=== PATIENT | female | born 1945 | race Caucasian/White ===

== ENCOUNTER 2020-04-04 09:42 | Outpatient (REF) | payer OTHER, SELFPAY ==
--- NOTE | ~2020-04-04 | MM_ITS ---
EXAMINATION: MM SCREENING DIGITAL BREAST TOMOSYNTHESIS, BILATERAL CLINICAL INFORMATION: Screening. Asymptomatic. The lifetime risk of breast cancer based on the Tyrer-Cuzick Model is 3%. COMPARISON: Mammography: 06/24/2018, 08/15/2015 TECHNIQUE: Digital breast tomosynthesis is performed in both the craniocaudal and mediolateral oblique views along with computer-aided detection (CAD). Synthesized 2D images are generated from the tomosynthesis. FINDINGS: There are scattered areas of fibroglandular density (ACR BI-RADS breast composition Category b). There are no significant masses, abnormal calcifications, or other abnormalities. No significant changes from prior studies. The axilla and skin contours are unremarkable. MM/MM tomosynthesis screening BI IMPRESSION: No mammographic evidence of malignancy. ASSESSMENT: BI-RADS 1: Negative RECOMMENDATION: Routine annual mammography screening. This patient's information was entered into a reminder system with a target due date for their next mammogram.
== END 2020-04-04 09:43 | disposition home or self-care (01) ==
LOC: HO.MAMMO 09:42
PROVIDERS: PCP Nurse Practitioner Family; Visit Provider Nurse Practitioner Family
DX: Z12.31 Encounter for screening mammogram for malignant neoplasm of breast (principal)
CPT/HCPCS: 77063; 77067

== ENCOUNTER 2021-05-01 08:25 | Outpatient (REF) | payer OTHER, SELFPAY ==
--- NOTE | ~2021-05-01 | MM_ITS ---
EXAMINATION: BONE DENSITOMETRY CLINICAL INDICATION: Osteopenia. COMPARISON: Previous BD dated 06/23/2018 and baseline BD dated 01/29/2005. TECHNIQUE: Using a [employer] DXA System (software version: 13.1) manufactured by [employer], dual-energy x-ray absorptiometry was performed of the lumbar spine and left hip. The images are of good technical quality. Summary results are attached. FINDINGS: AP SPINE L1-L4: There is dextrocurvature lumbar spine with multilevel degenerative changes which may cause overestimation of the lumbar bone mineral density. Current: BMD 1.282 g/cm2, Z-score 2.7, T-score 0.9, normal, 7.0% increase from previous, 20.5% increase from baseline (<5% change is not significant). Prior: BMD 1.198 g/cm2. Baseline: BMD 1.064 g/cm2. LEFT FEMUR, NECK: Current: BMD 0.721 g/cm2, Z-score -0.3, T-score -2.3, osteopenia. Prior: BMD 0.760 g/cm2. Baseline: BMD 0.668 g/cm2. LEFT FEMUR, TOTAL: Current: BMD 0.739 g/cm2, Z-score -0.3, T-score -2.1, osteopenia, 8.1% decrease from previous, 6.2% decrease from baseline (<5% change is not significant). Prior: BMD 0.804 g/cm2. Baseline: BMD 0.788 g/cm2. IDENTIFIED RISK FACTORS: Early menopause, hysterectomy, bilateral oophorectomy, osteoporosis, secondary osteoporosis. HISTORY OF FRACTURE: None listed. MEDICATIONS: Calcium, vitamin D. MM/XR DEXA axial skeleton IMPRESSION: 1. DIAGNOSIS: Osteopenia based on the lowest T-score value of -2.3 in the femoral neck applying World Health Organization criteria. 2. 10-YEAR FRACTURE RISK PREDICTION, FRAX: Major osteoporotic fracture (clinical spine, forearm, hip or shoulder) 15.1%. Hip fracture 4.3%. 3. Treatment Recommendations: NOF guidelines recommend consideration for treatment in postmenopausal women and men age 50 and older presenting with the following: -A hip or vertebral (clinical or morphometric) fracture. -T-score less than or equal to -2.5 at the femoral neck or spine after appropriate evaluation to exclude secondary causes. -Low bone mass at the hip or spine and a 10-year fracture probability by FRAX of greater than or equal to 3% for hip fracture or greater than or equal to 20% for major osteoporotic fracture based on the [place] adapted WHO algorithm. 4. Other Recommendations: All treatment decisions require clinical judgment and consideration of individual patient factors, including patient preferences, comorbidities, previous drug use, risk factors not captured in the FRAX model (e.g. frailty, falls, vitamin D deficiency, increased bone turnover, interval significant decline in bone density) and possible under or overestimation of fracture risk by FRAX. Additional medical evaluation for secondary cause of low bone mineral density may be appropriate. FUTURE SCAN RECOMMENDATION: People with diagnosed cases of osteoporosis or at high risk for fracture should have regular bone mineral density tests. For patients eligible for Medicare, routine testing is allowed once every 2 years. The testing frequency can be increased to one year for patients who have rapidly progressing disease, those who are receiving or discontinuing medical therapy to restore bone mass, or have additional risk factors.
--- NOTE | ~2021-05-01 | MM_ITS ---
EXAMINATION: MM SCREENING DIGITAL BREAST TOMOSYNTHESIS, BILATERAL CLINICAL INFORMATION: Screening. Asymptomatic. The lifetime risk of breast cancer based on the Tyrer-Cuzick Model is 2%. COMPARISON: Mammography: 04/04/2020, 06/23/2018, 08/15/2015 TECHNIQUE: Digital breast tomosynthesis is performed in both the craniocaudal and mediolateral oblique views along with computer-aided detection (CAD). Synthesized 2D images are generated from the tomosynthesis. FINDINGS: There are scattered areas of fibroglandular density (ACR BI-RADS breast composition Category b). There are no significant masses, abnormal calcifications, or other abnormalities. Parenchymal pattern is similar to prior studies. There is no developing density or architectural abnormality. The axilla and skin contours are unremarkable. No significant changes. MM/MM tomosynthesis screening BI IMPRESSION: No mammographic evidence of malignancy. ASSESSMENT: BI-RADS 1: Negative RECOMMENDATION: Routine annual mammography screening. This patient's information was entered into a reminder system with a target due date for their next mammogram.
== END 2021-05-01 08:26 | disposition home or self-care (01) ==
LOC: HO.MAMMO 08:25
PROVIDERS: Visit Provider Nurse Practitioner Family
DX: Z12.31 Encounter for screening mammogram for malignant neoplasm of breast (principal); M85.89 Other specified disorders of bone density and structure, multiple sites; Z78.0 Asymptomatic menopausal state; Z90.710 Acquired absence of both cervix and uterus; Z90.722 Acquired absence of ovaries, bilateral; Z79.899 Other long term (current) drug therapy
CPT/HCPCS: 77063; 77067; 77080

== ENCOUNTER 2022-11-03 08:00 | Outpatient (AMB) | payer OTHER, SELFPAY ==
--- NOTE | 2022-11-03 08:07 | MHC.OFFVIS ---
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 Cooley. 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 Cooley. Denies recent falls. She continues to go to her exercise class 2 times per week. She denies any fevers or chills. She reports mild intermittent discomfort in both of her knees. She does not take any medicines for her discomfort. Allergies shellfish Allergy (Mild, Uncoded 11/03/22 08:15) Unknown Medication List - Last Reconciled 11/03/22 by Josh Cooley MD multivitamin (Multiple Vitamins tablet) 1 tab PO DAILY PFSH Social History (Updated 11/03/22 @ 08:15 by Carmen Templeton [facility]) Current occupational status: retired and disabled Physical Exam Vital Signs: BMI result Body Mass Index 24.4 Const Other: Well-nourished well-developed very friendly female awake alert and oriented x3 in no acute distress Extrem Other: Bilateral lower extremity examination shows good capillary refill, no skin lesions noted, normal sensation light touch Bilateral knee examination shows that the surgical incisions are well healed, no erythema, full active extension and flexion to 120 degrees, her patellae track well Results Reviewed Results Reviewed: X-rays of the patient's left knee taken today show a total knee arthroplasty in good position with no signs of loosening, no acute bony abnormalities Assessment & Plan Assessment & Plan (1) Left knee pain: Code(s): M25.562 - Pain in left knee Plan: Ms. Bland continues to do well after undergoing bilateral total knee replacement surgeries. She will continue with her exercise program. She does know to take antibiotics before any dental work. She will contact me prior to her annual follow-up appointment next spring should any questions or concerns arise. Feel free to call me at any time should questions regarding her orthopedic management arise. I spent 22 minutes in reviewing the patient's records and imaging studies, seeing the patient and documenting in the medical record. Orders: Orders XR knee LT 3V Today M25.562 - Pain in left knee Coding Level of Care Code Est Pt Level 2 (27027) Diagnoses Left knee pain M25.562
[2022-11-03 08:14] VITALS: BMI 24.4
== END 2022-11-03 08:32 | disposition home or self-care (01) ==
PROVIDERS: PCP Nurse Practitioner Family; Visit Provider Orthopaedic Surgery
DX: M25.562 Pain in left knee (principal)
CPT/HCPCS: 99212

== ENCOUNTER 2022-11-03 08:18 | Outpatient (REF) | payer OTHER, SELFPAY ==
--- NOTE | ~2022-11-03 | XR_ITS ---
EXAMINATION: XR KNEE, LEFT CLINICAL INFORMATION: Pain in left knee. COMPARISON: None available. TECHNIQUE: Three views of the left knee. FINDINGS: Prosthetic components of the total knee arthroplasty are appropriately aligned without periprosthetic fracture or abnormal lucency. No component migration. A small joint effusion is suspected. Surrounding soft tissues are markedly swollen and edematous. Bones are osteopenic. XR/XR knee LT 3V IMPRESSION: Appropriate alignment of the left total knee arthroplasty. No evidence of loosening or periprosthetic fracture. Small left knee joint effusion. Marked surrounding soft tissue swelling at the knee.
== END 2022-11-03 08:19 | disposition home or self-care (01) ==
LOC: HO.HOSX 08:18
PROVIDERS: Visit Provider Orthopaedic Surgery
DX: M25.562 Pain in left knee (principal)
CPT/HCPCS: 73562

== ENCOUNTER 2023-06-02 08:18 | Outpatient (AMB) | payer OTHER, SELFPAY ==
[2023-06-02 08:35] VITALS: BMI 24.4
--- NOTE | 2023-06-02 08:35 | A.OFFVIS_ITS ---
Intake Vital Signs 06/02/23 08:35 Height 5 ft Weight 125 lb BMI 24.4 Intake Visit Reasons: OV-Lt TKA 03/24/2022-follow up Intake Note: Zoe is a 77 year old female who presents for a follow up after her Left TKA on 03/24/2022. Patient reports she is doing well and has not concerns. She continues with her home exercise program. She denies any fevers or chills. She does not take any medicine for her intermittent discomfort. Allergies shellfish Allergy (Mild, Uncoded 11/03/22 08:15) Unknown Medication List - Last Reconciled 06/02/23 by Josh Cooley MD brimonidine 0.2% drps ophthalmic (eye) multivitamin (Multiple Vitamins tablet) 1 tab PO DAILY [facility] Surgical History (Updated 06/02/23 @ 08:50 by Bella Copeland [facility]) History of right knee surgery (~2017) History of left knee surgery (~03/24/22) Social History (Updated 11/03/22 @ 08:15 by Carmen Templeton [facility]) Current occupational status: retired and disabled Physical Exam Vital Signs: BMI result Body Mass Index 24.4 Const Other: Well-nourished well-developed very friendly female awake alert and oriented x3 in no acute distress Extrem Other: Bilateral lower extremity examination shows good capillary refill, no skin lesions noted, normal sensation light touch Left knee examination shows that the surgical incision is well healed, no erythema, full active extension and flexion to 125 degrees, her patella tracks well Results Reviewed Results Reviewed: X-rays of the patient's left knee taken today show a total knee arthroplasty in good position with no signs of loosening, no acute bony abnormalities Assessment & Plan Assessment & Plan (1) Left knee pain: Code(s): M25.562 - Pain in left knee Plan Ms. Bland continues to do well after undergoing left total knee replacement surgery on 03/24/2022. She will continue with her home exercise program. She does know to take antibiotics before any dental work. She will contact me prior to her annual follow-up appointment should any questions or concerns arise. Feel free to call me at any time should questions regarding her orthopedic management arise. I spent 22 minutes in reviewing the patient's records and imaging studies, seeing the patient and documenting in the medical record. Orders: Orders XR knee LT 3V Today M25.562 - Pain in left knee Coding Level of Care Code Est Pt Level 2 (59730) Diagnoses Left knee pain M25.562
== END 2023-06-02 08:59 | disposition home or self-care (01) ==
PROVIDERS: PCP Internal Medicine; Visit Provider Orthopaedic Surgery
DX: M25.562 Pain in left knee (principal)
CPT/HCPCS: 99213

== ENCOUNTER 2023-06-02 09:01 | Outpatient (REF) | payer OTHER, SELFPAY ==
--- NOTE | ~2023-06-02 | XR_ITS ---
EXAMINATION: XR KNEE, LEFT CLINICAL INFORMATION: Pain in left knee. COMPARISON: 11/03/2022 TECHNIQUE: Three views of the left knee. FINDINGS: Status post left total knee arthroplasty. Hardware appears intact. Moderate joint effusion. Bones are diffusely demineralized. XR/XR knee LT 3V IMPRESSION: Status post left total knee arthroplasty. Hardware appears intact. Moderate joint effusion.
== END 2023-06-02 09:02 | disposition home or self-care (01) ==
LOC: HO.HOSX 09:01
PROVIDERS: Visit Provider Orthopaedic Surgery
DX: M25.562 Pain in left knee (principal)
CPT/HCPCS: 73562

== ENCOUNTER 2024-01-07 07:24 | Outpatient (REF) | payer OTHER, SELFPAY ==
--- NOTE | ~2024-01-07 | MM_ITS ---
EXAMINATION: MM SCREENING DIGITAL BREAST TOMOSYNTHESIS, BILATERAL CLINICAL INFORMATION: Screening. Asymptomatic. COMPARISON: Mammography: Comparison is made with available priors TECHNIQUE: Digital breast mammography with tomosynthesis is performed in both the craniocaudal and mediolateral oblique views along with computer-aided detection (CAD). FINDINGS: There are scattered areas of fibroglandular density (ACR BI-RADS breast composition Category b). There are no significant masses, abnormal calcifications, or other abnormalities. MM/MM tomosynthesis screening BI IMPRESSION: No mammographic evidence of malignancy. ASSESSMENT: BI-RADS BI-RADS 1 - Negative RECOMMENDATION: Routine annual mammography screening. 1 year F/U This examination should not preclude the clinical evaluation of a suspicious palpable abnormality. This patient's information was entered into a reminder system with a target due date for their next mammogram. Electronically signed by: Yesica Arrieta DO 01/14/2024 01:03 PM DONNA
== END 2024-01-07 07:25 | disposition home or self-care (01) ==
LOC: HO.MAMMO 07:24
PROVIDERS: PCP Internal Medicine; Visit Provider Internal Medicine
DX: Z12.31 Encounter for screening mammogram for malignant neoplasm of breast (principal)
CPT/HCPCS: 77063; 77067

== ENCOUNTER → 2024-01-07 07:45 | Outpatient (BNV) | payer OTHER, SELFPAY | PROVIDERS: PCP Internal Medicine; Visit Provider Internal Medicine | DX: Z12.31 Encounter for screening mammogram for malignant neoplasm of breast (principal) | CPT/HCPCS: 77063; 77067 ==

== ENCOUNTER 2024-03-22 10:19 | Outpatient (AMB) | payer OTHER, SELFPAY ==
--- NOTE | 2024-03-22 10:28 | MHC.PC.OV ---
Vital Signs 03/22/24 10:29 Height 5 ft Weight 129 lb BMI 25.2 BP 130/70 Blood Pressure Location Lt brachial Position Sitting Respiration 16 Pulse 68 Pulse Source Pulse Oximeter Temp 98.0 F Temp Source Oral Pulse Oximetry (%) 97 Oxygen Delivery Method Room Air Intake Visit Reasons: REHABILITATION SERVICES COUNSELOR office visit Intake Note: Pt is here today for New patient visit. Allergies shellfish Allergy (Mild, Uncoded 03/22/24 10:34) Unknown Medication List - Last Reconciled 03/22/24 by Kaur Conner MD brimonidine 0.2% drps ophthalmic (eye) multivitamin (Multiple Vitamins tablet) 1 tab PO DAILY Tobacco use date assessed: 03/22/24 Fall risk assessment: No Falls in past year Last assessed Fall Risk: 03/22/24 Dental Screening Dental Screen Date: 03/22/24 Did you have a dental visit in the last 12 months?: Yes Did you have a dental problem in the last 6 months where you did not have access to dental care?: No Was dental information given to patient?: Patient has dentist HPI REHABILITATION SERVICES COUNSELOR office visit HPI Details Pt presents for REHABILITATION SERVICES COUNSELOR PE. Pt used to see REHABILITATION SERVICES COUNSELOR at [facility], last visit in 2021. Patient denies any significant past medical history. [facility] Surgical History (Updated 03/22/24 @ 10:58 by Kaur Conner MD) History of right knee surgery (~2017) History of left knee surgery (~03/24/22) Family History (Updated 03/22/24 @ 10:37 by Latonya Wright [facility]) Father Heavy smoker Mother Diabetes Social History (Updated 03/22/24 @ 10:59 by Kaur Conner MD) Household Members Other:: lives with daughter, exercise 2 x week Housing: House Patient Tobacco Use Status: Former Tobacco user e-Cigarette/Vaping Use: Never Used service: No Current occupational status: retired Cognitive needs: No Hearing needs: No Vision needs: Yes Questionnaire PHQ-9 Over the last 2 weeks, how often have you been bothered by any of the following problems? 1. Little interest or pleasure in doing things: not at all 2. Feeling down, depressed, or hopeless: not at all 3. Trouble falling or staying asleep, or sleeping too much: not at all 4. Feeling tired or having little energy: not at all 5. Poor appetite or overeating: not at all 6. Feeling bad about yourself - or that you are a failure or have let yourself or your family down: not at all 7. Trouble concentrating on things, such as reading the newspaper or watching television: not at all 8. Moving or speaking so slowly that other people could have noticed. Or the opposite - being so fidgety or restless that you have been moving around a lot more than usual: not at all 9. Thoughts that you would be better off or of hurting yourself in some way: not at all Total score: 0 Depression Screening Interpretation: Negative Depression Screening Done: Yes 42434 - PHQ-9 Billing: Yes Source: Developed by Drs. Marty Morton, Tiffany Husain, Paras Herbert and colleagues, with an educational tobias from [employer]. Thrive Questionnaire Date Thrive assessed: 03/22/24 I am a: Patient What is your living situation today?: I have a steady place to live Within the past 12 months, did the food you bought not last and you didn't have the money to get more?: Never true Within the past 12 months, did you worry whether your food would run out before you got money to buy more?: Never true Do you have trouble paying for medicines?: No Do you have trouble getting transportation to medical appointments?: No Do you have trouble paying your heating and electricity bill?: No Do you have trouble taking care of your child, family member or friend?: No Do you have trouble with day-to-day activities such as bathing, preparing meals, shopping, managing finances, etc.?: No Are you currently unemployed and looking for a job?: No Are you interested in more education?: No Please select the resources that you would like help with: None Currently or been in a relationship where the following occur: No concerns reported THRIVE Score: 0 AUDIT C Alcohol Use Questionnaire (AUDIT-C) 1. How often do you have a drink containing alcohol?: 2-3 times a week 2. How many drinks containing alcohol do you have on a typical day when you are drinking?: 1 or 2 3. How often do you have six or more drinks on one occasion?: Never Total Score: 3 CARLY-7 AMB Questionnaire CARLY-7 Date CARLY - 7 assessed: 03/22/24 Feeling nervous, anxious, or on edge: 0 = Not at all Not being able to stop or control worryin = Not at all Worrying too much about different things: 0 = Not at all Trouble relaxin = Not at all Being so restless that it is hard to sit still: 0 = Not at all Becoming easily annoyed or irritable: 0 = Not at all Feeling afraid as if something awful might happen: 0 = Not at all Total CARLY-7 score (0-4 normal; 5-9 mild; 10-14 moderate; 15-21 severe): 0 Source: Developed by Drs. Marty Morton, Tiffany Husain, Paras Herbert and colleagues, with an educational tobias from [employer]. CARLY-7 Assessment Billing CARLY-7 Assessment Tool: CARLY-7 Assessment 31676 Review of Systems Const All systems reviewed & are unremarkable except as noted in HPI and below Reports no additional complaints Eyes Reports no additional complaints ENT Reports no additional complaints Card Reports no additional complaints Resp Reports no additional complaints GI Reports no additional complaints Reports no additional complaints Musc Reports no additional complaints Physical exam (Primary Care) Vital Signs: Last Vital Signs Temp 98.0 F 03/22/24 10:29 Pulse 68 03/22/24 10:29 Resp 16 03/22/24 10:29 BP 130/70 03/22/24 10:29 Pulse Ox 97 03/22/24 10:29 Oxygen Delivery Method Room Air 03/22/24 10:29 BMI result Body Mass Index 25.2 Tobacco/Smoking Status: Tobacco use Status Tobacco use date assessed 03/22/24 03/22/24 10:38 Patient Tobacco Use Status Former Tobacco user 03/22/24 10:59 e-Cigarette/Vaping Use Never Used 03/22/24 10:59 PHQ-9: PHQ-9 Score PHQ-9: Total score 0 03/22/24 11:00 Depression Screening Interpretation: Negative Thrive Assessment: Date of Thrive Assessment Date Thrive assessed 03/22/24 03/22/24 10:38 Currently or been in a relationship where the following occur: No concerns reported Const General: no acute distress HENMT Head: Yes normal to inspection General nose exam: Normal external nose present Face and sinus: Yes normal facial exam Mouth: Normal oral and palatal mucosa present Throat: Yes posterior oropharynx normal Eyes General: appearance normal, both eyes and all related structures Neck Neck: Yes no lymphadenopathy and Yes supple Resp Effort & Inspection: normal respiratory effort Auscultation: clear to auscultation bilaterally Cardio Rhythm: regular rhythm Heart sounds: S1 normal heart sound present and S2 normal heart sound present GI Inspection: Yes normal to inspection Palpation (GI): Soft to palpation Percussion: Yes normal to percussion Auscultation: normal bowel sounds Coding Level of Care Code New Pt Prev Care >65yr (67686) Diagnoses Hx of screening mammography Z92.89 Hx of colonoscopy Z98.890 Vitamin D deficiency E55.9 Hyperlipidemia E78.5 Annual physical exam Z00.00 Additional Codes CARLY-7 Assessment Billing - CARLY-7 Assessment Tool: CARLY-7 Assessment 60075 ([id number]) PHQ-9 - 68457 - PHQ-9 Billing: Yes ([id number]) Assessment & Plan Assessment & Plan (1) Hx of screening mammography: Comment: 2023 [facility] Code(s): Z92.89 - Personal history of other medical treatment Category: Medical Plan: up to date (2) Hx of colonoscopy: Comment: 2021 normal Code(s): Z98.890 - Other specified postprocedural states Category: Medical Plan: negative (3) Vitamin D deficiency: Code(s): E55.9 - Vitamin D deficiency, unspecified Category: Medical Plan: Check vitamin-D level patient was advised to start taking 1000 units of vitamin D3 (4) Hyperlipidemia: Code(s): E78.5 - Hyperlipidemia, unspecified Category: Medical Plan: Low-cholesterol diet discussed with the patient, she will have a fasting blood work including lipid profile (5) Annual physical exam: Code(s): Z00.00 - Encounter for general adult medical examination without abnormal findings Category: Medical Plan: Well-balanced diet regular physical activity discussed with the patient. She is up-to-date with the mammogram colonoscopy and had normal DEXA 2 years Orders: Orders Comprehensive [place]. Panel Fast Today E55.9 - Vitamin D deficiency, unspecified, E78.5 - Hyperlipidemia, unspecified Lipid Panel Today E55.9 - Vitamin D deficiency, unspecified, E78.5 - Hyperlipidemia, unspecified TSH reflex Free T4 Today E55.9 - Vitamin D deficiency, unspecified, E78.5 - Hyperlipidemia, unspecified Vitamin D 25-OH Total Today E55.9 - Vitamin D deficiency, unspecified, E78.5 - Hyperlipidemia, unspecified Complete Blood Count Auto Diff Today E55.9 - Vitamin D deficiency, unspecified, E78.5 - Hyperlipidemia, unspecified
[2024-03-22 10:29] VITALS: BP 130/70; PULSE 68; RESP 16; TEMP 36.7; O2SAT 97; BMI 25.2
--- OUTSIDE RECORDS SUMMARY | 2024-03-22 12:19 | XMS_ITS ---
Author Organization [facility] Address [address] [place] [address] Care Team Providers Care Diesel Service Journeyman Name Role Phone Kaur Conner MD Primary Care Provider Portillo Nuno Unavailable [phone] Allergies Allergen (clinical drug ingredient) Drug/Non Drug Allergy documented on EMR Reaction Allergy Type Onset Date Status Shrimp Flavor Unknown Drug Allergy Act mine REASON FOR VISIT Painful nail(s) aggravated by shoes causing difficulty standing/walking Medications Medication SIG (Take, Route, Frequency, Duration) Notes Start Date End Date Status Brimonidine Tartrate 0.2 % INSTILL 1 REJI P IN LEFT EYE TWICE DAILY. 12 HOURS APART Ophthalmic for 90 Days Active Social History Tobacco Use: Social History Observation Description Date Details (start date - stop date) Former Smoker NA - NA Tobacco Use/Smoking Question Answer Notes Are you a: former smoker Additional Findings: Tobacco Non-User Current no n-smoker Alcohol Screen Question Answer Notes Did you have a drink containing alcohol in the p ast year? Yes Points 0 Interpretation Negative Tobacco use other than smoking: Question Answer Notes Are you an other tobacco user? No Problems Problem Type SNOMED Code ICD Code Onset Dates Problem Status W/U Status Risk Notes Problem [id number] Onychomycosis (B35.1) Active confirmed Procedures Procedure Date Ordered Date Performed Result Body Sit e 06119-PRINTDO NAIL, 6 OR MORE 01/11/2024 N/A Encounters Encounter Location Date Provider Diagnosis [facility] [address] [place] [address] 01/11/2024 Portillo Mccormick Onychomycosis B35.1 ; Pain in right toe(s) M79.674 and Pain in left toe(s) M79.675 Assessments Encounter Date Diagnosis (ICD Code) Assessment Notes Treatment Notes Treatment Clinical Notes Section Notes 01/11/2024 Onychomycosis (ICD-10 - B35.1) 01/11/2024 Pain in right toe(s) (ICD-10 - M79.674) 01/11/2024 Pain in left toe(s) (ICD-10 - M79.675) Plan Of Treatment Pending Test Test Name Order Date [id number] NAIL, 6 OR MORE 01/11/2024 Next Appt Details Follow Up: prn, Reason: Provider Name:Portillo Mccormick , 04/14/2024 09:00:00 AM, [address] [place] [address], [phone], Procedure Notes * Category Sub-Category Detail Notes Debride Nail 6-10 Nail debridement Performance o f this nail treatment by a nonprofessional would put this patients foot and overall health at risk. Therefore, debridement to affected nail(s), as described in exam, was performed extensively to reduce/remove overall nail length, girth, thickness, subungual debris, and necrotic tissue, by manual and/or electrical means through the use of a nail nipper and/or dremel-type finish grinder, to a more viable healthy nail plate or bed tissue 6-10. Silver nitrate used for any petechial bleeding as necessary. Definitive antifungal treatment options have been reviewed and discussed with the patient. The patient chooses, no pharmaceutical tx - 8[address]72 Progress Notes * Adina MARMOLEJOaDOB:[birth year] (78 yo F)Acc No.[id number]:01/11/2024 Progress Note Patient:?Zoe MARMOLEJO Provider:?Portillo Mccormick DPM :1945???Age:78 Y???Sex:Female D ate:01/11/2024 Address:[address] [place], [place] [address] Pcp:Kaur Conner MD Subjective: * Chief Complaints: * ???Painful nail(s) aggravate d by shoes causing difficulty standing/walking * HPI: ???Painful Nails:?Pt States Last PCP Visit:?Date:?07/21/2023 * ROS:?General/Constitutional:?Nausea?denies.?Vomiting?denies.?Hunger Thirst?denies.?Loss appetite?denies.?Chills?denies.?Fatigue?denies.?Fever?denies.?Night Sweats?denies.?Unexplained weight loss?denies.?Unexplained weight gain?denies.?HEENTM:?Dentures?admits.?Dizziness?denies.?Glasses/contacts?admits.?Retinopathy?de nies.?Blurred/double vision?denies.?TMJ?denies.?Discharge/drainage?denies.?Implants?denies.?Sore throat?denies.?Dental implants?denies.?Hard of hearing ?denies.?Difficulty chewing/swallowing/speaking?denies.?Nose bleeds?denies.?Sore mouth?denies.?Respiratory:?On Oxygen?denies.?Pneumonia/pleurisy?denies.?Bronchitis?denies.?Emphysema?denies.?C oughing?denies.?Cough blood?denies.?Shortness of breath?denies.?Wheezing?denies.?Cardiovascular:?Pacemaker?denies.?MVP?denies.?WPW?denies.?CHF?denies.?Heart attack?denies.?Septal defect?denies.?Rapid beat?denies.?Chest pain ?denies.?Atrial Fib.?denies.?Murmur/Palpitations?denies.?Gastrointestinal:?Hemorrhoids?denies.?Stomach/Abdominal pain?denies.?Dark blood stool?denies.?Irritable bowel ?admits.?Constipation?denies.?Diarrhea?denies.?Hematology:?Swelling?denies.?Clots?denies.?Varicose Veins?denies.?Bruising?denies.?Bleeding problem?denies.?Genitourinary:?Blood urine?denies.?Frequent/Painfu/urination/bladder control?denies.?Kidney stones?denies.?Infection (UTI)?denies.?Nephropathy?denies.?sex trans dis (STD)?denies.?Prostate?denies.?Musculoskeletal:?Hammertoes?denies.?Bunions?denies.?Back Pain?denies.?Muscle Cramps/ Resting?denies.?Muscle cramps / walking?denies.?Generalized aches and pains?denies.?Weakness?denies.?Integ.:?Velasquez?denies.?Scars?denies.?Corns/calluses?admits.?Ingrown nails?admits.?Painful nails?admits.?Open Sores?denies.?Rashes?denies.?Neurologic:?Difficulty sleeping?denies.?Brain disorder?denies.?Numbness?denies.?Balance trouble?denies.?Confusion?denies.?Fainting/blackouts?denies.?Tingling?denies.?Tr emors?denies.? * Medical History:? * Surgical History:?left knee replacement 03/23/2022right knee replacement 04/23/2017Gall bladder removal * Hospitalization/Major Diagno stic Procedure:?Denies Past Hospitalization * Family History:?Mother: dece ased, diagnosed with Diabetic - NIDDM.?Father: .? * Social History:?Tobacco Use:?Tobacco Use/Smoking?Are you a:?former smoker ?Additional Findings: Tobacco Non-User?Current non-smoker ?Tobacco use other than smoking?Are you an other tobacco user??No ???Drugs/Alcohol:?Drugs?Have you used drugs other than those for medical reasons in the past 12 months??No ?Alcohol Screen?Did you have a drink containing alcohol in the past year??Yes ?Points?0 ?Interpretation?Negative ???Miscellaneous:?Caffeine: yes. ?Children: yes, 2. ?Exercise: no. ?Marital status: . ?Occupation: Retired. * Medications:?TakingBrimonidi ne Tartrate 0.2 % Solution INSTILL 1 DROP IN LEFT EYE TWICE DAILY. 12 HOURS APART Ophthalmic Medication List reviewed and reconciled with the patientTaking Brimonidine Tartrate 0.2 % Solution INSTILL 1 DROP IN LEFT EYE TWICE DAILY. 12 HOURS APART Ophthalmic Medication List reviewed and reconciled with the patient * Allergies:?Shrimp Flavoryes[ Allergies Verified] Objective: * Vitals:? * Examination: ???Nails: ?NAILS are:?Elongated, overgrown, dystrophic, lytic, greater than 3mm thick, discolored and friable with crumbly malodorous subungual debris, with pain on palpation, 1-5 B/L.? Assessment: * Assessment: 1.?Pain in right toe(s) - M7 9.674???2.?Onychomycosis - B35.1 (Primary)???3.?Pain in left toe(s) - M79.675??? Plan: * Treatment: * Procedures:?Debride Nail 6-10:?Nail debridement?Performance of this nail treatment by a nonprofessional would put this patients foot and overall health at risk. Therefore, debridement to affected nail(s), as described in exam, was performed extensively to reduce/remove overall nail length, girth, thickness, subungual debris, and necrotic tissue, by manual and/or electrical means through the use of a nail nipper and/or dremel-type finish grinder, to a more viable healthy nail plate or bed tissue 6-10. Silver nitrate used for any petechial bleeding as necessary. Definitive antifungal treatment options have been reviewed and discussed with the patient. The patient chooses, no pharmaceutical tx - 75107.? * Procedure Codes:?92746 DEBRI DE NAIL, 6 OR MORE * Follow Up:?prn * Images: * Sign off status: Completed true * Provider:?Portillo Mccormick DPM Date:?2023 Generated for Georges hazel/Aidan/Eladioitting on:?03/22/2024 12:19 PM EST History and Physical Notes * HPI (History of Present Illness) Category Sub-Category Detail Notes Category Not es Painful Nails Pt States Last PCP Visit: Date:: 07/21/2023 Examination Category Sub-Category Detail Notes Category Not es Nails NAILS are: Elongated, overg rown, dystrophic, lytic, greater than 3mm thick, discolored and friable with crumbly malodorous subungual debris, with pain on palpation, 1-5 B/L
--- OUTSIDE RECORDS SUMMARY | 2024-03-22 12:19 | XMS_ITS | Data Portability ---
Author Organization [place] [facility] Address [address] [facility] [address] [place] [address] Care Team Providers Care Unclaimed Property Manager Name Role Phone TREVOR ARAGON Primary Care Provider Assessment Encounter Date Assessment Date Assessment LastModified by Organization Details LastModified Time 05/12/2022 05/12/2022 Pleasant 76-year-old female status post left total knee arthroplasty on 03/23/2022. However her range of motion is still notably decreased. I will have her see Dr. Cooley for possible manipulation under anesthesia of her left total knee replacement. In the meantime she should continue with her stretching exercise regimen as aggressively as possible within safe limits. [email or web address] Not available 05/12/2022 13:27:34 Plan of Treatment Reminders Order Date Submit Date Provider Last Modified By Organization Details Last Modified Time Details Appointments None record ed. Lab None record ed. Referral None record ed. Procedures None record ed. Surgeries None record ed. Imaging None record ed. Medication Orders None record ed. Patient TargetsNo targets recorded. Patient InstructionsNo instructions recorded. Reason for Referral None Reported. Problems Name Problem SNOMED Code Status Onset Date Resolution Date Notes Provider Name and Address Organization Details Recorded Time Osteoarthri tis of right knee joint 5256722367455 00 Active 2022 Josh Cooley MD [address] [facility] [address], [place], [address] [facility], 13:36:18 Problem Notes None recorded. Procedures Surgical History Date Name Laterality Status Provider Name and Address Organization Details Recorded Time Hysterectomy completed Estella Perez [facility] 05/12/2022 09:32:54 cholecystectomy completed Estella Perez [facility] 05/12/2022 09:33:34 Imaging Results None recorded. Procedure Notes None recorded. Medical Equipment None Reported. Allergies No known drug allergies Medications Name Sig Start Date Stop Date Status Note LastModified by Organization Details LastModified Time celecoxib 200 mg capsule active Not Available Not Available Not Available peg-electrol yte solution 420 gram oral solution USE DIRECTED active Not Available Not Available No t Available amoxicillin 500 mg tablet TAKE 4 TABLETS 1 HOUR PRIOR TO DENTAL APPOINTMENT active Not Available Not Available Not Available lorazepam 0.5 mg tablet active Not Available Not Available Not Available brimonidine 0.2 % eye drops INSTILL 1 DROP IN LEFT EYE TWICE DAILY 12 HOURS APART active Not Available Not Available No t Available warfarin 1 mg tablet TAKE 3 TABLETS BY MOUTH DAILY DIRECTED BY PRESCRIBER active Not Available Not Available N ot Available oxycodone 5 mg tablet TAKE 1 TO 2 TABLETS BY MOUTH EVERY 8 HOURS NEEDED FOR PAIN active Not Available Not Available No t Available acetaminophe n active Not Available Not Available Not Available calcium carbonate active Not Available Not Available No t Available cyanocobalam in (vitamin B-12) active Not Available Not Available Not Available amoxicillin active Not Available Not A vailable Not Available lorazepam active Not Available Not Karlie ilable Not Available methocarbamo l active Not Available Not Available Not Available Celebrex active Not Available Not Avai lable Not Available Flonase Allergy Relief active Not Available Not Available Not Available Vitals Date Recorded Body height Body mass index (BMI) Body weight Provider Name and Address Organization Details Last Updated DateTime 05/12/2022 152.4 cm 27.3 kg/m2 23149.[address] [facility] 05/12/2022 09:32:27 Social History None recorded. Functional Status None recorded. Mental Status None recorded. Family History Relationship Description Onset Age of this Age Resolved Age Notes LastModified by Organization Details LastModified Time Mother Diabetes mellitus [email or web address] Not available 2022 09:32:42 Medical History Condition Response Arthritis Y Gynecological HistoryNo gynecological history recorded. Obstetrics History GPAL:G 0 P 0 0 0 0 Past Encounters Encounter ID Performer Location Encounter Start Date Encounter Closed Date Diagnosis/Indication Diagnosis SNOMED-CT Code Diagnosis ICD10 Code Diagnosis Note [id number] MD KAL Shelton [address] [facility] [address] [place] [address] 05/12/2022 13:04:18 05/12/2022 13:38:00 Knee joint prosthesis present [id number] 02 Z96.659 Health Concerns Section Related Observation LastModified by Organization Detai ls LastModified Time None Recorded Concern Status LastModified by Organization Details LastModified Time None Recorded Advance Directives Directive None Recorded Payers Encounter Date Sequence Insurance Name Policy Number Policy Black Covered Member ID Black Member ID Guarantor Name 05/12/2022 1 [employer] - [employer] (PPO) [id number] Zoe Paris Baldo [id number] Zoe Bland Notes Date Note Type Note Provider Name and Address Organization Details Recorded Time 05/12/2022 text/html 76-year-old fema le here for follow-up on her left total knee arthroplasty that was performed by Dr. Cooley on 03/23/2022. Patient states occasional stiffness and discomfort however tolerable. She does do her stretching exercises on a routine basis however may not be enough. She understands when to take her antibiotic prophylaxis. Here for follow-up evaluation. CRISTINA MASTERSON PA-C [address] [facility] [address], [place], [address], [place] [facility] 05/12/2022 13:27:44 OBGyn Episode No OBEpisode recorded.
--- OUTSIDE RECORDS SUMMARY | 2024-03-22 12:20 | XMS_ITS | Clinical Summary ---
[facility] Address [address] [place] [address] Care Team Providers Care Builder'S Labourer Name Role Phone Angelita Pedro NP Primary Care Provider Unavailabl e Immunizations Name Administration Dates Next Due ABHISHEK/Umm SARS-CoV-2 COVID -19, vector-nr, rS-Ad26, preservative free 06/25/2020 Surgical History Surgery Date Site/Laterality Comments HYSTERECTOMY PROCEDURE:HYSTERECTOMY CHOLECYSTECTOMY PROCEDURE:CHOLECYSTECTOMY JOINT REPLACEMENT PROCEDURE:JOINT REPLACEMENT KNEE SURGERY PROCEDURE:KNEE SURGERY Family History Medical History Relation Name Comments Diabetes Mother Relation Name Status Comments Mother Social History Tobacco Use Types Packs/Day Years Used Date Smoking Tobacco: Former Alcohol Use Standard Drinks/Week Comments Yes 0 (1 standard drink = 0.6 oz pur e alcohol) Sex and Gender Information Value Date Recorded Sex Assigned at Not on file Gender Identity Not on file Sexual Orientation Not on file Obstetrics History Last Filed Vital Signs Vital Sign Reading Time Taken Comments Blood Pressure - - Pulse - - Temperature - - Respiratory Rate - - Oxygen Saturation - - Inhaled Oxygen Concentration - - Weight 63.5 kg (140 lb) 03/11/2022 11:01 AM EST Height 149.9 cm (4' 11 ) 01/21/2022 11:38 AM EST Body Mass Index 28.28 01/21/2022 11:38 AM EST Plan of Treatment Health Maintenance Due Date Last Done Comments DTaP,Tdap,and Td Vaccines (1 - Tdap) 1965 Zoster Vaccines (1 of 2) 1996 Pneumococcal Vaccine: 65+ Ye ars (1 of 1 - PCV) 10/24/2011 RSV Immunization Patients 60 + Years Old (1 - 1-dose 75+ series) 2021 Depression Screening 01/29/2022 Falls Risk Assessment 01/29/2022 Hepatitis C Screening 01/29/2022 Osteoporosis Screening (Bone Density Screening) 01/29/2022 Social Influencers of Health Screening 01/29/2022 COVID-19 Vaccine (2 - 2023-2 5 season) 2023 06/25/2020 Influenza Vaccine (#1) 2023 HIB Vaccines Aged Out No longer eligi ble based on patient's age to complete this topic HPV Vaccines Aged Out No longer eligi ble based on patient's age to complete this topic Hepatitis A Vaccines Aged Out No long er eligible based on patient's age to complete this topic Hepatitis B Vaccines Aged Out No long er eligible based on patient's age to complete this topic IPV Vaccines Aged Out No longer eligi ble based on patient's age to complete this topic MMR Vaccines Aged Out No longer eligi ble based on patient's age to complete this topic Meningococcal ACWY Vaccine Aged Out N o longer eligible based on patient's age to complete this topic RSV Immunization Patients Un danny 20 months Aged Out No longer eligible b ased on patient's age to complete this topic Varicella Vaccines Aged Out No longer eligible based on patient's age to complete this topic Care Teams Builder'S Labourer Relationship Specialty Start Date End Date Angelita Pedro NP PCP - General Internal Medicine 09/18/21
--- OUTSIDE RECORDS SUMMARY | 2024-03-22 12:20 | XMS_ITS ---
Author Organization [facility] Address [address] [place] [address] Care Team Providers Care Finance Effectiveness Manager Name Role Phone Kaur Conner MD Primary Care Provider Unavaila Portillo Bell Unavailable [phone] Spenser Nguyen Unavailable [phone] Allergies Allergen (clinical drug ingredient) Drug/Non Drug Allergy documented on EMR Reaction Allergy Type Onset Date Status Shrimp Flavor Unknown Drug Allergy Act mine REASON FOR VISIT Painful nail(s) aggrevated by shoes and causing difficulty standing/walking. Medications Medication SIG (Take, Route, Frequency, Duration) [...] Are you an other tobacco user? No Vital Signs Height 5 ft in 10/20/2023 Weight 130 lbs 10/20/2023 BMI 25.39 kg/m2 10/20/2023 Encounters Encounter Location Date Provider Diagnosis [facility] [address] [place] [address] 10/20/2023 Spenser Nguyen Ingrowing nail L60.0 ; Skin disease L98.9 ; Pain in right toe(s) M79.674 ; Tinea unguium B35.1 and Pain in left toe(s) M79.675 Assessments Encounter Date Diagnosis (ICD Code) Assessment Notes Treatment Notes Treatment Clinical Notes Section Notes 10/20/2023 Ingrowing nail (ICD-10 - L60.0) 10/20/2023 Skin disease (ICD-10 - L98.9) 10/20/2023 Pain in right toe(s) (ICD-10 - M79.674) 10/20/2023 Tinea unguium (ICD-10 - B35.1) 10/20/2023 Pain in left toe(s) (ICD-10 - M79.675) Plan Of Treatment Next Appt Details Follow Up: 3 Months, Reason: Provider Name:Portillo Mccormick , 04/14/2024 09:00:00 AM, [address] [place] [address], [address], Procedure Notes * Category Sub-Category Detail Notes Debride Nail 6-10 Nail debridement Nail debridem ent performed extensively to reduce/remove overall nail length and girth, subungual debris, and necrotic tissue, by manual and electrical means with use of a nail nipper and/or dremel, to more viable healthy nail plate or bed tissue 6-10. Silver nitrate used for any petechial bleeding as necessary. Patient chooses, no pharmaceutical tx (49743) Progress Notes * JALEEL, AdinaaDOB:[birth year] (77 yo F)Acc No.[id number]:10/20/2023 Progress Note Patient:?Zoe Bland Provider:?Spenser Nguyen DPM :1945???Age:77 Y???Sex:Female D ate:10/20/2023 Address:[address] [place] [address] [facility] Subjective: * Chief Complaints: * ??? Painful nail(s) aggrevat ed by shoes and causing difficulty standing/walking. * HPI: ???Skin problems:?Nature:?tender.?Location:?Right , 1st.?Duration:?several years.?Onset/Cause:?unknown.?Course:?intermittent.?Aggravated by:?any pressure, shoe gear.?Treatments:?tx with Dr. Owen.?Severity/Quality:?mild, moderate.?Painful Nails:?Pt States Last PCP Visit:?Date:?07/20/2022 * ROS:?General/Constitutional:?Nausea?denies.?Vomiting?denies.?Hunger Thirst?denies.?Loss appetite?denies.?Chills?denies.?Fatigue?denies.?Fever?denies.?Night Sweats?denies.?Unexplained weight loss?denies.?Unexplained weight gain?denies.?HEENTM:?Dentures?admits.?Dizziness?denies.?Glasses/contacts?admits.?Retinopathy?de nies.?Blurred/double vision?denies.?TMJ?denies.?Discharge/drainage?denies.?Implants?denies.?Sore throat?denies.?Dental implants?denies.?Hard of hearing ?denies.?Difficulty chewing/swallowing/speaking?denies.?Nose bleeds?denies.?Sore mouth?denies.?Respiratory:?On Oxygen?denies.?Pneumonia/pleurisy?denies.?Bronchitis?denies.?Emphysema?denies.?C oughing?denies.?Cough blood?denies.?Shortness of breath?denies.?Wheezing?denies.?Cardiovascular:?Pacemaker?denies.?MVP?denies.?WPW?denies.?CHF?denies.?Heart attack?denies.?Septal defect?denies.?Rapid beat?denies.?Chest pain ?denies.?Atrial Fib.?denies.?Murmur/Palpitations?denies.?Gastrointestinal:?Hemorrhoids?denies.?Stomach/Abdominal pain?denies.?Dark blood stool?denies.?Irritable bowel ?admits.?Constipation?denies.?Diarrhea?denies.?Hematology:?Swelling?denies.?Clots?denies.?Varicose Veins?denies.?Bruising?denies.?Bleeding problem?denies.?Genitourinary:?Blood urine?denies.?Frequent/Painfu/urination/bladder control?denies.?Kidney stones?denies.?Infection (UTI)?denies.?Nephropathy?denies.?sex trans dis (STD)?denies.?Prostate?denies.?Musculoskeletal:?Hammertoes?denies.?Bunions?denies.?Back Pain?denies.?Muscle Cramps/ Resting?denies.?Muscle cramps / walking?denies.?Generalized aches and pains?denies.?Weakness?denies.?Integ.:?Velasquez?denies.?Scars?denies.?Corns/calluses?denies.?Ingrown nails?denies.?Painful nails?denies.?Open Sores?denies.?Rashes?denies.?Neurologic:?Difficulty sleeping?denies.?Brain disorder?denies.?Numbness?denies.?Balance trouble?denies.?Confusion?denies.?Fainting/blackouts?denies.?Tingling?denies.?Tr emors?denies.? * Medical [...] ?Points?0 ?Interpretation?Negative ???Miscellaneous:?Caffeine: yes. ?Children: yes, 2. ?no Exercise. ?Marital status: . ?Occupation: Retired. * Medications:?TakingBrimonidi [...] * Allergies:?Shrimp Flavoryes[ Allergies Verified] Objective: * Vitals:?Ht: 5 ft, Wt:130, BM I:25.39, Shoe size:5.5. * Examination: ???General Examination: ?GENERAL APPEARANCE:?pleasant, alert, well nourished, well developed, well hydrated, with good attention to hygene/body habitus, and in no acute distress.?ORIENTED:?person,place, and time.?Neurological: ?SENSORY:?neurological exam reveals intact sensorium, pain sensation normal, vibration sensation intact, pinprick sensation is normal in the lower extremities, anesthesia, burning, tingling, B/L.?Vascular: ?DP PULSES:?2/4, B/L.?PT PULSES:?2/4, B/L.?CAPILLARY FILL TIME:?3 secs. per digit. B/L.?SKIN TEMPERTURE GRADIENT OF THE LOWER EXTERMITIES:?normal, B/L.?HAIR GROWTH/TEXTURE/ELASTICITY/TURGOR:?normal, B/L.?PIGMENTATION:?normal, B/L.?EDEMA:?absent, B/L.?TELANGECTASIA:?absent, B/L.?Dermatologic: ?SKIN FINDINGS:?Skin exam reveals normal texture, elasticity, and tugor. There are no masses. The interspaces are clear.?Orthopedic: ?MUSCLE STRENGTH:?5/5 all groups in a symmetrical fashion , B/L.?Ingrown Nail: ?INSPECTION:? Reveals nail incurvation, pain on palpation, groove hypertrophy, groove ischemia, Medial nail border, T5, TA.?Nails: ?NAILS are:?elongated,overgrown,dystrophic,greater than 3mm thick,discolored and friable with crumbly malodorous subungual debris, with pain on palpation, 1-5 B/L.? Assessment: * Assessment: 1.?Ingrowing nail - L60.0?2. ?Skin disease - L98.9 (Primary)?3.?Pain in right toe(s) - M79.674?4.?Tinea unguium - B35.1?5.?Pain in left toe(s) - M79.675? Plan: * Treatment: * Procedures:?Debride Nail 6-10:?Nail debridement?Nail debridement performed extensively to reduce/remove overall nail length and girth, subungual debris, and necrotic tissue, by manual and electrical means with use of a nail nipper and/or dremel, to more viable healthy nail plate or bed tissue 6-10. Silver nitrate used for any petechial bleeding as necessary. Patient chooses, no pharmaceutical tx (00897).? * Procedure Codes:?26742 DEBRI DE NAIL, 6 OR MORE, Modifiers: XS * Follow Up:?3 Months * Images: * Sign off status: Completed true * Provider:?Spenser Nguyen DPM Date:? 024 Generated for Lilianei ng/Awildag/eTransmitting on:?03/22/2024 12:19 PM EST History and Physical Notes * HPI (History of Present Illness) Category Sub-Category Detail Notes Category Not es Painful Nails Pt States Last PCP Visit: Date:: 07/20/2022 Skin problems Nature: tender Location: Right , 1st Duration: several years Onset/Cause: unknown Course: intermittent Aggravated by: any pressure, shoe g ear Treatments: tx with Dr. Owen Severity/Quality: mild, moderate Examination Category Sub-Category Detail Notes Category Not es Ingrown Nail INSPECTION: Reveals nail inc urvation, pain on palpation, groove hypertrophy, groove ischemia, Medial nail border, T5, TA Neurological SENSORY: neurological exa m reveals intact sensorium, pain sensation normal, vibration sensation intact, pinprick sensation is normal in the lower extremities, anesthesia, burning, tingling, B/L Dermatologic SKIN FINDINGS: Skin exam reveal s normal texture, elasticity, and tugor. There are no masses. The interspaces are clear Orthopedic MUSCLE STRENGTH: 5/5 all groups in a symmetrical fashion , B/L General Examination GENERAL APPEARANCE: pleasant , alert, well nourished, well developed, well hydrated, with good attention to hygene/body habitus, and in no acute distress ORIENTED: person,place, and ti me Vascular DP PULSES (B): 2/4, B/L PT PULSES (B): 2/4, B/L CAPILLARY FILL TIME: 3 secs. per digit. B/L TEMPERTURE GRADIENT (C): normal, B/L TROPHIC CONDITION-TEXTURE/ELASTICITY/TUR GOR/HAIR GROWTH (B): normal, B/L EDEMA (C): absent, B/L TELANGECTASIA: absent, B/L PIGMENTATION: normal, B/L Nails NAILS are: elongated,overgr own,dystrophic,greater than 3mm thick,discolored and friable with crumbly malodorous subungual debris, with pain on palpation, 1-5 B/L
--- OUTSIDE RECORDS SUMMARY | 2024-03-22 12:20 | XMS_ITS ---
Author Organization [facility] Address [address] [place] [address] Care Team Providers Care Portainer Operator Name Role Phone Kaur Conner MD Primary Care Provider Portillo Nuno Unavailable [phone] Judith Chavez [phone] REASON FOR VISIT seen sooner Encounters Encounter Location Date Provider Diagnosis [address] [address] 01/24/2024 Judith Chavez Plan Of Treatment Next Appt Details Provider Name:Portillo Mccormick , 04/14/2024 09:00:00 AM, [address] [place] [address], [phone], Progress Notes * JALEELAdinaaDOB:[birth year] (78 yo F)Acc No.[id number]:01/24/2024 Progress Note Patient:?Zoe MARMOLEJO Provider:?Judith Chavez DPM :1945???Age:78 Y???Sex:Female D ate:01/24/2024 Address:[address] [place] [address] [id number] Pcp:Kaur Conner MD Subjective: * Chief Complaints: * ???1. Seen sooner. * Medical History:? Objective: * Vitals:? Assessment: Plan: * Treatment: * Images: * The named appointment provid er may or may not be the originator of this progress note, and it is not deemed complete until electronically signed by the appointment provider. Sign off status: Pending * Provider:?Judith Chavez DPM Date:?1 03/26/2023 Generated for Georges hazel/Aidan/Yanira on:?03/22/2024 12:20 PM EST
--- OUTSIDE RECORDS SUMMARY | 2024-03-22 12:20 | XMS_ITS | Patient Health Record ---
Author Organization [facility] [place] Address [address] [facility] [place] [address] Care Team Providers Care Truck Jumper Name Role Phone Kaur Conner MD Primary Care Provider Unavaila Portillo Bell Unavailable [phone] Spenser Nguyen Unavailable [phone] Judith Chavez Unavailable [phone] Allergies Allergen (clinical drug ingredient) Drug/Non Drug Allergy documented on EMR Reaction Allergy Type Onset Date Status Shrimp Flavor Unknown Drug Allergy Act mine Reason For Referral No Information Medications Medication SIG (Take, Route, Frequency, Duration) [...] Problem Status W/U Status Risk Notes Problem [id number] Onychomycosis (B35.1) Active confirmed Vital Signs Height 5 ft in 10/20/2023 Weight 130 lbs 10/20/2023 BMI 25.39 kg/m2 10/20/2023 Procedures Procedure Date Ordered Date Performed Result Body Sit e 18398-[id number] NAIL, 6 OR MORE 01/11/2024 N/A Encounters Encounter Location Date Provider Diagnosis [address] [address] 07/21/2023 Spenser Nguyen Skin disease L98.9 ; Ingrowing nail L60.0 ; Pain in right toe(s) M79.674 ; Tinea unguium B35.1 and Pain in left toe(s) M79.[address] [address] 10/20/2023 Spenser Nguyen Ingrowing nail L60.0 ; Skin disease L98.9 ; Pain in right toe(s) M79.674 ; Tinea unguium B35.1 and Pain in left toe(s) M79.[address] [address] 01/11/2024 Portillo Mccormick Onychomycosis B35.1 ; Pain in right toe(s) M79.674 and Pain in left toe(s) M79.[address] [address] 06/04/2023 Spenser Nguyen Assessments Encounter Date Diagnosis (ICD Code) Assessment Notes Treatment Notes Treatment Clinical Notes Section Notes 07/21/2023 Ingrowing nail (ICD-10 - L60.0) 07/21/2023 Skin disease (ICD-10 - L98.9) 10/20/2023 Ingrowing nail (ICD-10 - L60.0) 10/20/2023 Skin disease (ICD-10 - L98.9) 01/11/2024 Pain in right toe(s) (ICD-10 - M79.674) 01/11/2024 Onychomycosis (ICD-10 - B35.1) 01/11/2024 Pain in left toe(s) (ICD-10 - M79.675) 10/20/2023 Pain in right toe(s) (ICD-10 - M79.674) 07/21/2023 Pain in right toe(s) (ICD-10 - M79.674) 10/20/2023 Tinea unguium (ICD-10 - B35.1) 07/21/2023 Tinea unguium (ICD-10 - B35.1) 07/21/2023 Pain in left toe(s) (ICD-10 - M79.675) 10/20/2023 Pain in left toe(s) (ICD-10 - M79.675) Plan Of Treatment Pending Test Test Name Order Date [id number] NAIL, 6 OR MORE 01/11/2024 Next Appt Details Provider Name:Portillo Mccormick , 04/14/2024 09:00:00 AM, [address] [place] [address], [phone], Insurance Providers Payer Name Payer Address Payer Phone Subscriber Number Group Number Insured Name Patient Relationship to Insured Coverage Start Date Coverage End Date 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
--- OUTSIDE RECORDS SUMMARY | 2024-03-22 12:20 | XMS_ITS | Clinical Summary ---
Author Organization [facility] Address [address] [place] [address] Care Team Providers Care Salesman/Owner Name Role Phone Angelita Pedro CANDY PULLER Primary Care Provider Allergies Active Allergy Reactions Criticality Noted Date Comments Shellfish 12/02/2016 Medications Medication Sig Dispensed Refills Start Date End Date Status LORazepam (ATIVAN) 0.5 MG tablet TK 1 T PO QHS PRN 0 08/31/2016 Acti ve aspirin 81 MG chewable tablet Chew 81 mg by mouth daily. 0 Active Calcium Citrate-Vitamin D (CALCIUM + D PO) Take by mouth. 0 Acti ve Cholecalciferol (VITAMIN D-[address]) 25 MCG (1000 UT) tablet Take 1,000 Units by mouth. 0 Active vitamin B-12 (CYANOCOBALAMIN) tablet 1000 mcg Take 1 tablet by mouth. 0 Active fluticasone (FLONASE) 50 MCG/ACT nasal spray spray or apply 2 sprays inside Nose. 0 10/26/2018 Active naproxen (NAPROSYN) 500 MG tablet 0 04/28/2019 Active calcium carbonate (OS-MATILDE) 600 MG tablet ONE DAILY Orally 0 Active amoxicillin (AMOXIL) 500 MG tablet Take 4 tabs 1 hour prior to dental appointment 20 tablet 3 08/19/2021 Active warfarin (COUMADIN) 1 MG tablet Take 3 tabs daily or as directed by physician 45 tablet 0 04/06/2022 Active celecoxib (CeleBREX) 200 MG capsule Take 1 capsule (200 mg total) by mouth daily. 30 capsule 1 04/06/2022 Active acetaminophen (TYLENOL EXTRA STRENGTH) 500 MG tablet 2 tablets (1,000 mg total). 0 03/23/2022 Active methocarbamol (ROBAXIN) 750 MG tablet 1 tablet (750 mg total). 0 03/23/2022 Active senna-docusate (PERICOLACE) 8.6-50 MG Bedtime 0 03/23/2022 Active warfarin (COUMADIN) 1 MG tablet 4 tablets (4 mg total). 0 03/23/2022 Active oxyCODONE (ROXICODONE) 5 MG immediate release tablet Take 1 tab p.o. every 4 hours as needed for pain. May fill for lesser quantity. 30 tablet 0 04/17/2022 Active Active Problems Problem Noted Date Diagnosed Date Knee stiffness, right 09/14/2017 Family History Medical History Relation Name Comments [...] on file Sexual Orientation Not on file Job Start Date Occupation Industry Not on file Not on file Not on file Last Filed Vital Signs Vital Sign Reading Time Taken Comments Blood Pressure - - Pulse - - Temperature 36 ??C (96.8 ??F) 05/12/2019 9:07 AM EDT Respiratory Rate - - Oxygen Saturation - - Inhaled Oxygen Concentration - - Weight 63.5 kg (140 lb) 03/11/2022 11:01 AM EST Height 152.4 cm (5') 08/20/2020 9:20 AM EDT Body Mass Index 27.34 08/20/2020 9:20 AM EDT Plan of Treatment Health Maintenance Due Date Last Done Comments Hepatitis C Screening 1945 Depression Screening 1958 Preventative Health Evaluation 1964 DTap / Tdap / Td (1 - Tdap) 1965 Shingrix-Zoster Vaccine (1 of 2) 1996 Fall Risk Assessment 10/24/2011 Osteoporosis Screening (DEXA Scan) 10/24/2011 Pneumococcal Vaccine (1 of 1 - PCV) 10/24/2011 RSV Adult > 60+ Yrs or Pregn ant (1 - 1-dose 75+ series) 2021 COVID-19 Vaccine (2 - 2023-2 5 season) 2023 06/25/2020 Influenza Vaccine (#1) 2023 Hepatitis B Vaccines Aged Out No long er eligible based on patient's age to complete this topic RSV Ped < 20 months Aged Out No longe r eligible based on patient's age to complete this topic Care Teams Salesman/Owner Relationship Specialty Start Date End Date Angelita Pedro CANDY PULLER [address] [facility] [place] [address] PCP - General Family Medicine 11/05/16
== END 2024-03-22 12:25 | disposition home or self-care (01) ==
PROVIDERS: PCP Internal Medicine; Visit Provider Internal Medicine
DX: Z92.89 Personal history of other medical treatment (principal); Z98.890 Other specified postprocedural states; E55.9 Vitamin D deficiency, unspecified; E78.5 Hyperlipidemia, unspecified; Z00.00 Encounter for general adult medical examination without abnormal findings

== ENCOUNTER 2024-03-22 10:19 | Outpatient (REF) | payer OTHER, SELFPAY ==
[2024-03-22 13:34] LABS: MANUAL DIFF FLAG NO
--- OUTSIDE RECORDS SUMMARY | 2024-03-22 13:38 | XMS_ITS | Clinical Summary ---
Author Organization [facility] Address [address] [place] [address] Care Team Providers Care Infrastructure Architect Name Role Phone Angelita Pedro HEATING UNIT INSTALLER Primary Care Provider [phone] Allergies Active Allergy Reactions Criticality Noted Date [...] age to complete this topic Care Teams Infrastructure Architect Relationship Specialty Start Date End Date Angelita Pedro HEATING UNIT INSTALLER [address] [facility] [place] [address] PCP - General Family Medicine 11/05/16
--- OUTSIDE RECORDS SUMMARY | 2024-03-22 13:38 | XMS_ITS | Clinical Summary ---
Author Organization [facility] Address [address] [place] [address] Care Team Providers Care Call Centre Supervisor Name Role Phone Angelita Pedro NP Primary [...] age to complete this topic Care Teams Call Centre Supervisor Relationship Specialty Start Date End Date Angelita Pedro NP PCP - General Internal Medicine 09/18/21
[2024-03-22 13:54] LABS: Basophils Percent Auto 0.5 % (0-2); Eosinophils Absolute Auto 0.2 X10*3/uL (0.0-0.4); Eosinophils Percent Auto 2.4 % (0-4); Hematocrit 41.1 % (37.0-47.0); Hemoglobin 13.4 g/dl (12.0-16.0); Imm Gran Abs Auto 0.03 X10*3/uL (0.00-0.03); Imm Gran Pct Auto 0.5 % (0.0-0.4); Lymphocytes Absolute Auto 1.2 X10*3/uL (1.2-4.9); Lymphocytes Percent Auto 18.6 % (20-40); Mean Corpuscular HGB Conc 32.6 g/dl (31.0-35.0); Mean Corpuscular Hemoglobin 30.8 pg (27.0-33.0); Mean Corpuscular Volume 94.5 fL (80.0-98.0); Mean Platelet Volume 9.4 fL (9.4-12.3); Monocytes Absolute Auto 0.4 X10*3/uL (0.1-1.2); Monocytes Percent Auto 6.4 % (2-11); Neutrophils Absolute Auto 4.5 x10*3/uL (2.0-8.3); Neutrophils Percent Auto 71.6 % (45-73); Platelet Count 270 X10*3/uL (160-400); Red Blood Count 4.35 X10*6/uL (4.20-5.50); Red Cell Distribution Width 13.2 % (11.0-16.0); White Blood Count 6.3 X10*3/uL (4.8-10.8)
[2024-03-22 14:26] LABS: Alanine Aminotransferase 12 U/L (0-31); Albumin Level 4.1 g/dL (3.5-5.0); Alkaline Phosphatase 95 U/L (39-117); Anion Gap 12 (12-20); Aspartate Amino Transferase 21 U/L (5-31); Bilirubin Total 0.5 mg/dL (0.0-1.0); Blood Urea Nitrogen 16 mg/dL (9-16); Calcium 8.6 mg/dL (8.4-10.2); Carbon Dioxide 26 mmol/L (22-29); Chloride 106 mmol/L (96-108); Cholesterol 222 mg/dL (<200); Estimated Glomerular Filt Rate > 60; Glucose Fasting 84 mg/dL (60-99); HDL Cholesterol 82 mg/dL (>40); LDL Cholesterol Calculated 126 mg/dL (<100); Potassium 3.6 mmol/L (3.3-5.1); Sodium 140 mmol/L (135-145); Total Protein 7.3 g/dL (6.5-8.0); Triglycerides 73 mg/dL (<150)
[2024-03-22 14:32] LABS: TSH reflex Free T4 1.06 uIU/mL (0.32-4.0); Vitamin D 25-OH Total 15.1 ng/mL (>30)
== END 2024-03-22 10:20 | disposition home or self-care (01) ==
LOC: HO.HMGCLDS 10:19
PROVIDERS: PCP Internal Medicine; Visit Provider Internal Medicine
DX: Z00.00 Encounter for general adult medical examination without abnormal findings (principal); E78.5 Hyperlipidemia, unspecified; E55.9 Vitamin D deficiency, unspecified
CPT/HCPCS: 36415; 80053; 80061; 82306; 84443; 85025; 96127

== ENCOUNTER 2024-05-30 07:56 | Outpatient (AMB) | payer OTHER, SELFPAY ==
--- OUTSIDE RECORDS SUMMARY | 2024-05-30 07:59 | XMS_ITS ---
Author Organization [facility] Address [address] [place] [address] Care Team Providers Care Hall Coordinator Name Role Phone Kaur Conner MD Primary Care Provider Portillo Nuno [phone] REASON FOR VISIT same day rs 04/14/24 Encounters Encounter Location Date Provider Diagnosis [address] [address] 04/14/2024 Portillo Mccormick Plan Of Treatment Next Appt Details Provider Name:Portillo Mccormick , 07/28/2024 08:45:00 AM, [address] [place], [address], Progress Notes * Adina MARMOLEJOaDOB:[birth year] (78 yo F)Acc No.[id number]:04/14/2024 Patient:?Zoe MARMOLEJO :1945???Age:78 Y???Sex:Female Address:[address] [place] [address] [place], [address] * true * Date:? Generated for Lilianei ilir/Aidan/eTransmitting on:?05/30/2024 07:59 AM EDT
--- OUTSIDE RECORDS SUMMARY | 2024-05-30 07:59 | XMS_ITS ---
Author Organization [facility] Address [address] [place] [address] Care Team Providers Care Auto Mechanics Teacher Name Role Phone Kaur Conner MD Primary Care Provider Portillo Nuno Unavailable [phone] Allergies Allergen (clinical drug ingredient) Drug/Non Drug Allergy documented on EMR Reaction Allergy Type Onset Date Status Shrimp Flavor Unknown Drug Allergy Act mine Medications Medication SIG (Take, Route, Frequency, Duration) Notes Start Date End Date Status Brimonidine Tartrate 0.2 % INSTILL 1 REJI P IN LEFT EYE TWICE DAILY. 12 HOURS APART Ophthalmic for 90 Days Active Encounters Encounter Location Date Provider Diagnosis [address] [address] 04/14/2024 Portillo Mccormick Plan Of Treatment Next Appt Details Provider Name:Portillo Mccormick , 07/28/2024 08:45:00 AM, [address] [place] [address], [address], Progress Notes * Adina MARMOLEJOaDOB:[birth year] (78 yo F)Acc No.[id number]:04/14/2024 Progress Note Patient:?JALEELAdinaa Provider:?Portillo Mccormick DPM :1945???Age:78 Y???Sex:Female D ate:04/14/2024 Address:[address] [place] [address], [id number] Pcp:Kaur Conner MD Subjective: * Chief Complaints: * ??? * Medical History:?Osteoporosi s, Spina bifida, Measles, Mumps, Chicken pox, Joint implants/screws. * Medications:?Taking Brimonid ine Tartrate 0.2 % Solution INSTILL 1 DROP IN LEFT EYE TWICE DAILY. 12 HOURS APART Ophthalmic * Allergies:?Shrimp Flavor. Objective: * Vitals:? Assessment: Plan: * Treatment: * Images: * The named appointment provid er may or may not be the originator of this progress note, and it is not deemed complete until electronically signed by the appointment provider. Sign off status: Pending * Provider:?Portillo Mccormick DPM Date:?2024 Generated for Georges hazel/Aidan/Yanira on:?05/30/2024 07:59 AM EDT
--- OUTSIDE RECORDS SUMMARY | 2024-05-30 08:00 | XMS_ITS ---
Author Name [facility] Organization Unknown Encounters Encounter Type Encounter Reason Primary Diagnosis Location Date Ambulatory [facility] 10/01/2022
--- OUTSIDE RECORDS SUMMARY | 2024-05-30 08:00 | XMS_ITS | Clinical Summary ---
Author Organization [facility] Address [address] [place] [address] Care Team Providers Care Lopper Name Role Phone Angelita Pedro MUSIC ASSISTANT Primary Care Provider [phone] Allergies Active Allergy Reactions Criticality Noted Date [...] age to complete this topic Care Teams Lopper Relationship Specialty Start Date End Date Angelita Pedro MUSIC ASSISTANT [address] [facility] [place] [address] PCP - General Family Medicine 11/05/16
--- OUTSIDE RECORDS SUMMARY | 2024-05-30 08:00 | XMS_ITS | Patient Health Record ---
Author Organization [facility] Address [address] [place] [address] Care Team Providers Care Skylights Assembler Name Role Phone Kaur Conner MD Primary Care Provider Unavaila Portillo Bell Unavailable [phone] Spenser Nguyen Unavailable [phone] Judith Chavez Unavailable [phone] Allergies Allergen (clinical drug ingredient) Drug/Non Drug [...] Date Details (start date - stop date) Never Smoker NA - NA Tobacco use other than smoking: Question Answer Notes Are you an other tobacco user? No Tobacco Control (Standard) Question Answer Notes Tobacco use: Nonsmoker Additional Findings: Tobacco non-user Current no nsmoker AUDIT-C (Standard) Question Answer Notes Did you have a drink containing alcohol in the p ast year? No Points 0 Interpretation Negative Problems Problem Type SNOMED Code ICD Code Onset Dates Problem Status W/U Status Risk Notes Problem [id number] Onychomycosis (B35.1) Active confirmed Vital Signs Blood pressure diastolic 80 mm Hg 04/21/2024 Height 5 ft in 04/21/2024 Blood pressure systolic 120 mm Hg 04/21/2024 Weight 130 lbs 04/21/2024 BMI 25.39 kg/m2 04/21/2024 Procedures Procedure Date Ordered Date Performed Result Body Sit e 00493-BETGNHR NAIL, 6 OR MORE 01/11/2024 N/A 14065-CTQZUBZ NAIL, 6 OR MORE 04/21/2024 N/A Encounters Encounter Location Date Provider Diagnosis [address] [address] 07/21/2023 Spenser Nguyen Skin disease L98.9 ; Ingrowing nail L60.0 ; Pain in right toe(s) M79.674 ; Tinea unguium B35.1 and Pain in left toe(s) M79.[address] [address] 10/20/2023 Spenser Nguyen Ingrowing nail L60.0 ; Skin disease L98.9 ; Pain in right toe(s) M79.674 ; Tinea unguium B35.1 and Pain in left toe(s) M79.[address] [address] 01/11/2024 Portilloany Mccormick Onychomycosis B35.1 ; Pain in right toe(s) M79.674 and Pain in left toe(s) M79.[address] [address] 04/21/2024 Portillo Anny Onychomycosis B35.1 ; Pain in right toe(s) M79.674 and Pain in left toe(s) M79.[address] [address] 06/04/2023 Spenser Nguyen [address] [address] 04/14/2024 Portilloany Mccormick Assessments Encounter Date Diagnosis (ICD Code) Assessment Notes Treatment Notes Treatment Clinical Notes Section Notes 07/21/2023 Ingrowing nail (ICD-10 - L60.0) 07/21/2023 Skin disease (ICD-10 - L98.9) 10/20/2023 Ingrowing nail (ICD-10 - L60.0) 10/20/2023 Skin disease (ICD-10 - L98.9) 01/11/2024 Pain in right toe(s) (ICD-10 - M79.674) 01/11/2024 Onychomycosis (ICD-10 - B35.1) 04/21/2024 Pain in right toe(s) (ICD-10 - M79.674) 04/21/2024 Onychomycosis (ICD-10 - B35.1) 04/21/2024 Pain in left toe(s) (ICD-10 - M79.675) 01/11/2024 Pain in left toe(s) (ICD-10 - M79.675) 10/20/2023 Pain in right toe(s) (ICD-10 - M79.674) 07/21/2023 Pain in right toe(s) (ICD-10 - M79.674) 10/20/2023 Tinea unguium (ICD-10 - B35.1) 07/21/2023 Tinea unguium (ICD-10 - B35.1) 07/21/2023 Pain in left toe(s) (ICD-10 - M79.675) 10/20/2023 Pain in left toe(s) (ICD-10 - M79.675) Plan Of Treatment Pending Test Test Name Order Date 17725-[id number] NAIL, 6 OR MORE 01/11/2024 04171-[id number] NAIL, 6 OR MORE 04/21/2024 Next Appt Details Provider Name:Portillo Mccormick , 07/28/2024 08:45:00 AM, [address] [place], [address], Insurance Providers Payer Name Payer Address Payer Phone Subscriber Number Group Number Insured Name Patient Relationship to Insured Coverage Start Date Coverage End Date [facility] ([facility]) [address] [place], [place] [id number] Zoe Cochran Self - patient is the insured Medical (General) History Medical History History ICD Code Osteoporosis Spina bifida Measles Mumps Chicken pox Joint implants/screws Surgical History Surgery Date(Month/Year) left knee replacement 03/23/2022 right knee replacement 04/23/2017 Gall bladder removal
--- OUTSIDE RECORDS SUMMARY | 2024-05-30 08:00 | XMS_ITS ---
Author Organization [facility] Address [address] [place] [address] Care Team Providers Care Senior Ios Software Engineer Name Role Phone Kaur Conner MD Primary Care Provider Portillo Nuno Unavailable [phone] Allergies Allergen (clinical drug ingredient) Drug/Non Drug [...] ast year? No Points 0 Interpretation Negative Vital Signs Height 5 ft in 04/21/2024 Weight 130 lbs 04/21/2024 BMI 25.39 kg/m2 04/21/2024 Blood pressure systolic 120 mm Hg 04/21/19 25 Blood pressure diastolic 80 mm Hg 025 Procedures Procedure Date Ordered Date Performed Result Body Sit e 48252-HQCRJPD NAIL, 6 OR MORE 04/21/2024 N/A Encounters Encounter Location Date Provider Diagnosis [facility] [address] [place] [address] 04/21/2024 Portillo Mccormick Onychomycosis B35.1 ; Pain in right toe(s) M79.674 and Pain in left toe(s) M79.675 Assessments Encounter Date Diagnosis (ICD Code) Assessment Notes Treatment Notes Treatment Clinical Notes Section Notes 04/21/2024 Onychomycosis (ICD-10 - B35.1) 04/21/2024 Pain in right toe(s) (ICD-10 - M79.674) 04/21/2024 Pain in left toe(s) (ICD-10 - M79.675) Plan Of Treatment Pending Test Test Name Order Date [id number] NAIL, 6 OR MORE 04/21/2024 Next Appt Details Follow Up: prn, Reason: Provider Name:Portillo Mccormick , 07/28/2024 08:45:00 AM, [address] [place], [address], Procedure Notes * Category Sub-Category Detail Notes Debride Nail 6-10 Nail debridement Due to the cl inical pathology outlined in the exam findings, performance of this nail treatment is medically necessary as its management by an unskilled/untrained nonprofessional would put this patients foot and overall health at risk. Therefore, debridement to affected nail(s), as described in exam ( TA, T1, T2, T3, T4, T5, T6, T7, T8, T9 ), was performed exclusively by the physician of record to reduce/remove overall nail length, girth, thickness, subungual debris, and necrotic tissue, by manual and/or electrical means through the use of a nail nipper and/or dremel-type seater grinder, to a more viable healthy nail plate or bed tissue 6-10 nails in total. Silver nitrate was used for any petechial bleeding as necessary. Definitive antifungal treatment options, both pharmaceutical and surgical, have been reviewed and discussed with the patient. The patient solely prefers the use of intermittent/as needed professional debridement services for their nail condition and understands the need for additional periodic treatments to maintain effectiveness in symptomatic relief - 43[address] Progress Notes * Yanick MARMOLEJO:[birth year] (78 yo F)Acc No.[id number]:04/21/2024 Progress Note Patient:?Zoe MARMOLEJO Provider:?Portillo Mccormick DPM :1945???Age:78 Y???Sex:Female D ate:04/21/2024 Address:[address] [place] [address] familia [facility] Pcp:Kaur Conner MD Subjective: * Chief Complaints: * ???Painful nail(s) aggravate d by shoes causing difficulty standing/walking * HPI: ???Painful Nails:?Pt States Last PCP Visit:?Date:?01/21/2024 * ROS:?General/Constitutional:?Nausea?denies.?Vomiting?denies.?Hunger Thirst?denies.?Loss appetite?denies.?Chills?denies.?Fatigue?denies.?Fever?denies.?Night Sweats?denies.?Unexplained weight loss?denies.?Unexplained [...] - NIDDM.?Father: .? * Social History:?Tobacco Use:?Tobacco use other than smoking?Are you an other tobacco user??No ?Tobacco Control (Standard)?Tobacco use:?Nonsmoker ?Additional Findings: Tobacco non-user?Current nonsmoker ???Drugs/Alcohol:?Drugs?Have you used drugs other than those for medical reasons in the past 12 months??No ???Miscellaneous:?Caffeine: yes. ?Children: yes, 2. ?Exercise: no. ?Marital status: . ?Occupation: Retired. ???Drug/Alcohol:?AUDIT-C (Standard)?Did you have a drink containing alcohol in the past year??No ?Points?0 ?Interpretation?Negative * Medications:?TakingBrimonidi ne Tartrate 0.2 % Solution [...] Objective: * Vitals:?Ht: 5 ft, Wt:130, BM I: 25.39, Shoe size:5.5, BP:120/80mm Hg, Ht-cm: 152.4 cm, Wt-k.97 kg. * Examination: ???Nails: ?NAILS are:?Elongated, overgrown, dystrophic, lytic, greater than 3mm thick, discolored and friable with crumbly malodorous subungual debris, with pain on palpation , TA, T1, T2, T3, T4, T5, T6, T7, T8, T9.? Assessment: * Assessment: 1.?Pain in right toe(s) - M7 9.674???2.?Onychomycosis - B35.1 (Primary)???3.?Pain in left toe(s) - M79.675??? Plan: * Treatment: * Procedures:?Debride Nail 6-10:?Nail debridement?Due to the clinical pathology outlined in the exam findings, performance of this nail treatment is medically necessary as its management by an unskilled/untrained nonprofessional would put this patients foot and overall health at risk. Therefore, debridement to affected nail(s), as described in exam (?TA, T1, T2, T3, T4, T5, T6, T7, T8, T9?), was performed exclusively by the physician of record to reduce/remove overall nail length, girth, thickness, subungual debris, and necrotic tissue, by manual and/or electrical means through the use of a nail nipper and/or dremel-type seater grinder, to a more viable healthy nail plate or bed tissue 6- 10 nails in total. Silver nitrate was used for any petechial bleeding as necessary. Definitive antifungal treatment options, both pharmaceutical and surgical, have been reviewed and discussed with the patient. The patient solely prefers the use of intermittent/as needed professional debridement services for their nail condition and understands the need for additional periodic treatments to maintain effectiveness in symptomatic relief - 57170.? * Procedure Codes:?23413 DEBRI DE NAIL, 6 OR MORE * Follow Up:?prn * Images: * Sign off status: Completed true * Provider:?Portillo Mccormick DPM Date:?2024 Generated for Georges hazel/Aidan/Yanira on:?05/30/2024 07:59 AM EDT History and Physical Notes * HPI (History of Present Illness) Category Sub-Category Detail Notes Category Not es Painful Nails Pt States Last PCP Visit: Date:: 01/21/2024 Examination Category Sub-Category Detail Notes Category Not es Nails NAILS are: Elongated, overg rown, dystrophic, lytic, greater than 3mm thick, discolored and friable with crumbly malodorous subungual debris, with pain on palpation , TA, T1, T2, T3, T4, T5, T6, T7, T8, T9
--- OUTSIDE RECORDS SUMMARY | 2024-05-30 08:00 | XMS_ITS | Clinical Summary ---
Author Organization [facility] Address [address] [place] [address] Care Team Providers Care Coil Spring Assembler Name Role Phone Angelita Pedro NP Primary [...] drink = 0.6 oz pur e alcohol) Comments Unknown Sex and Gender Information Value Date Recorded Sex Assigned at Not on file Legal Sex Female 11:59 AM EST Gender Identity Not on file Sexual Orientation [...] DTaP,Tdap,and Td Vaccines (1 - Tdap) 1965 Pneumococcal Vaccine: 50+ Ye ars (1 of 1 - PCV) 1996 Zoster Vaccines (1 of 2) 1996 RSV Immunization Adult Patie nts (1 - 1-dose 75+ series) 2021 Depression [...] patient's age to complete this topic Meningococcal B Vaccine Aged Out No l onger eligible based on patient's age to complete this topic RSV Immunization Patients Un danny 20 months Aged Out No longer eligible b ased on patient's age to complete this topic Varicella Vaccines Aged Out No longer eligible based on patient's age to complete this topic Care Teams Coil Spring Assembler Relationship Specialty Start Date End Date Angelita Pedro NP PCP - General Internal Medicine 09/18/21
--- OUTSIDE RECORDS SUMMARY | 2024-05-30 08:00 | XMS_ITS | Data Portability ---
Author Organization [facility] [place] Address [address] [facility] [address] [place] [address] Care Team Providers Care Surgical Oncologist Name Role Phone TREVOR ARAGON Primary Care [...] Time Osteoarthri tis of right knee joint [id number] 00 Active 2022 Josh Cooley MD [address] [facility] [address], [place], [address] [facility], 13:36:18 Problem Notes None recorded. Procedures Surgical History Date Name Laterality Status Provider Name and Address Organization Details Recorded Time Hysterectomy completed Estella Perez [facility], 05/12/2022 09:32:54 cholecystectomy completed Estella Perez [facility] - [facility], P 05/12/2022 09:33:34 Imaging Results None recorded. [...] Updated DateTime 05/12/2022 152.4 cm 27.3 kg/m2 57503.[address] [facility] P 05/12/2022 09:32:27 Social History None recorded. [...] Diagnosis Note 1370 MD KAL Shelton [address] [facility] [address] [place] [place] [address] 05/12/2022 13:04:18 05/12/2022 13:38:00 Knee joint prosthesis present [id number] 02 Z96.659 Health Concerns Section Related Observation LastModified by Organization Detai ls LastModified Time None Recorded Concern Status LastModified by Organization Details LastModified Time None Recorded Advance Directives Directive None Recorded Payers Encounter Date Sequence Insurance Name Policy Number Policy Black Covered Member ID Black Member ID Guarantor Name 05/12/2022 1 MULTIPLAN - [employer]IC[employer] (PPO) [id number] Zoe Paris Baldo [id number] Zoe Bland Notes Date Note Type Note [...] for follow-up evaluation. CRISTINA MASTERSON PA-C [address] [facility] [address], [place], [address], [place] [facility], P 05/12/2022 13:27:44 OBGyn Episode No OBEpisode recorded.
--- NOTE | 2024-05-30 08:15 | A.OFFVIS_ITS ---
Vital Signs 05/30/24 08:17 Height 5 ft Weight 129 lb BMI 25.2 Intake Visit Reasons: OV-Lt TKA 03/24/2022-follow up Intake Note: Zoe is a 78 year old female who presents today for a yearly follow up after undergoing left total knee replacement on 03/24/2022. She reports mild intermittent discomfort in her left knee. She denies any fevers or chills. She continues to exercise at [employer] in [employer] 2 days per week. She does not take any medicines for her discomfort. Allergies shellfish Allergy (Mild, Uncoded 05/30/24 08:17) Unknown Medication List - Last Reconciled 05/30/24 by Josh Cooley MD brimonidine 0.2% drps ophthalmic (eye) multivitamin (Multiple Vitamins tablet) 1 tab PO DAILY PFSH Surgical History (Updated 03/22/24 @ 10:58 by Kaur Conner MD) History of right knee surgery (~2017) History of left knee surgery (~03/24/22) Family History (Updated 03/22/24 @ 10:37 by Latonya Wright [facility]) Father Heavy smoker Mother Diabetes Social History (Updated 03/22/24 @ 10:59 by Kaur Conner MD) Household Members Other:: lives with daughter, exercise 2 x week Housing: House Patient Tobacco Use Status: Former Tobacco user e-Cigarette/Vaping Use: Never Used service: No Current occupational status: retired Cognitive needs: No Hearing needs: No Vision needs: Yes Physical Exam Vital Signs: BMI result Body Mass Index 25.2 Const Other: Well-nourished well-developed very friendly female awake alert and oriented x3 in no acute distress Extrem Other: Bilateral lower extremity examination shows good capillary refill, no skin lesions noted, normal sensation light touch Left knee examination shows that the surgical incision is well healed, no erythema, full active extension and flexion to 120 degrees, her patella tracks well Results Reviewed Results Reviewed: X-rays of the patient's left knee taken today show a total knee arthroplasty in good position with no signs of loosening, no acute bony abnormalities Assessment & Plan Assessment & Plan (1) Left knee pain: Code(s): M25.562 - Pain in left knee Category: Medical Plan Ms. Bland continues to do very well after undergoing left total knee replacement surgery. She will continue with her exercise program. She know to take antibiotics before any dental work. She will contact me prior to her annual follow-up appointment should any questions or concerns arise. Feel free to call me at any time should questions regarding her orthopedic management arise. I spent 22 minutes in reviewing the patient's records and imaging studies, seeing the patient and documenting in the medical record. Orders: Orders XR knee LT 3V Today M25.562 - Pain in left knee Coding Level of Care Code Est Pt Level 3 (07765) Complex EM visit Add On G2211 Diagnoses Left knee pain M25.562
[2024-05-30 08:17] VITALS: BMI 25.2
== END 2024-05-30 08:39 | disposition home or self-care (01) ==
LOC: HO.HOS 07:56
PROVIDERS: PCP Internal Medicine; Visit Provider Orthopaedic Surgery
DX: M25.562 Pain in left knee (principal); Z96.652 Presence of left artificial knee joint
CPT/HCPCS: 99213

== ENCOUNTER → 2024-05-30 07:58 | Outpatient (BNV) | payer OTHER, SELFPAY | PROVIDERS: Visit Provider Radiology Diagnostic Radiology | DX: M25.462 Effusion, left knee (principal) | CPT/HCPCS: 73562 ==

== ENCOUNTER 2024-05-30 10:33 | Outpatient (REF) | payer OTHER, SELFPAY ==
--- NOTE | ~2024-05-30 | XR_ITS ---
EXAMINATION: XR KNEE, LEFT CLINICAL INFORMATION: M25.562 - Pain in left knee COMPARISON: 06/02/2023, 11/03/2022. TECHNIQUE: Three views of the left knee. FINDINGS: There has been a total left knee arthroplasty. Femoral, and tibial components appear intact, anatomically aligned, and well seated. No periprosthetic loosening or fracture. There is been associated patellar resurfacing. The patella appears intact. There is a small to moderate joint effusion present on the lateral projection. Normal-appearing soft tissues. XR/XR knee LT 3V IMPRESSION: 1. No significant change in the appearance of the exam. Status post total left knee arthroplasty without definite complication. 2. Small to moderate size joint effusion. Electronically signed by: Connor Gomez MD 05/30/2024 12:20 PM EDT
--- OUTSIDE RECORDS SUMMARY | 2024-05-31 12:02 | XMS_ITS | Clinical Summary ---
Author Organization [facility] Address [address] [place] [address] Care Team Providers Care Diesel Engine Mechanic Name Role Phone Angelita Pedro SUPERVISOR AIRPLANE FLIGHT ATTENDANT Primary Care Provider [phone] Allergies Active Allergy Reactions Criticality Noted Date [...] age to complete this topic Care Teams Diesel Engine Mechanic Relationship Specialty Start Date End Date Angelita Pedro SUPERVISOR AIRPLANE FLIGHT ATTENDANT [address] [facility] [place] [address] PCP - General Family Medicine 11/05/16
--- OUTSIDE RECORDS SUMMARY | 2024-05-31 12:02 | XMS_ITS ---
Author Organization [facility] Address [address] [place] [address] Care Team Providers Care Mortgage Processor Name Role Phone Kaur Conner MD Primary Care Provider Portillo Nuno [phone] REASON FOR VISIT same day rs 04/14/24 Encounters Encounter Location Date Provider Diagnosis [address] [address] 04/14/2024 Portillo Mccormick Plan Of Treatment Next Appt Details Provider Name:Portillo Mccormick , 07/28/2024 08:45:00 AM, [address] [place], [address], Progress Notes * Adina MARMOLEJOaDOB:[birth year] (78 yo F)Acc No.[id number]:04/14/2024 Patient:?Zoe MARMOLEJO :1945???Age:78 Y???Sex:Female Address:[address] [place] [address], [place], [address] * true * Date:? Generated for Printi ilir/Aidan/eTransmitting on:?05/31/2024 12:01 PM EDT
--- OUTSIDE RECORDS SUMMARY | 2024-05-31 12:02 | XMS_ITS | Data Portability ---
Author Organization [facility] [place] Address [address] [facility] [address] [place] [address] Care Team Providers Care Salt Machine Operator Name Role Phone TREVOR ARAGON Primary Care [...] Time Osteoarthri tis of right knee joint [id number] 00 Active 2022 Josh Cooley MD [address] [facility] [address], [place], [address] [facility], 13:36:18 Problem Notes None recorded. Procedures Surgical History Date Name Laterality Status Provider Name and Address Organization Details Recorded Time Hysterectomy completed Estella Perez [facility], 05/12/2022 09:32:54 cholecystectomy completed Estella Perez [facility], P 05/12/2022 09:33:34 Imaging Results None recorded. [...] Updated DateTime 05/12/2022 152.4 cm 27.3 kg/m2 46392.[address] [facility] P 05/12/2022 09:32:27 Social History None recorded. [...] Diagnosis Note 1370 MD KAL Shelton [address] [facility] [address] [place] [address] 05/12/2022 13:04:18 05/12/2022 13:38:00 Knee joint prosthesis present [id number] 02 Z96.659 Health Concerns Section Related Observation LastModified by Organization Detai ls LastModified Time None Recorded Concern Status LastModified by Organization Details LastModified Time None Recorded Advance Directives Directive None Recorded Payers Encounter Date Sequence Insurance Name Policy Number Policy Black Covered Member ID Black Member ID Guarantor Name 05/12/2022 1 MULTIPLAN - [employer] (PPO) [id number] Zoe Paris Baldo [id number] Zoe Bland Notes Date Note Type Note [...] for follow-up evaluation. CRISTINA MASTERSON PA-C [address] [facility] [address], [place], [address], [place] [facility] P 05/12/2022 13:27:44 OBGyn Episode No OBEpisode recorded.
--- OUTSIDE RECORDS SUMMARY | 2024-05-31 12:02 | XMS_ITS | Patient Health Record ---
[facility] Organization [facility] Address [address] [place] [address] Care Team Providers Care Braille Duplicating Machine Operator Name Role Phone Kaur Conner MD Primary Care Provider Unavaila Portillo Bell Unavailable [phone] Spenser Nguyen Unavailable [phone] Judith Chavez Unavailable [phone] Allergies Allergen (clinical drug ingredient) Drug/Non Drug [...] Problem Status W/U Status Risk Notes Problem [id number] Onychomycosis (B35.1) Active confirmed Vital Signs Blood pressure diastolic 80 mm Hg 04/21/2024 Height 5 ft in 04/21/2024 Blood pressure systolic 120 mm Hg 04/21/2024 Weight 130 lbs 04/21/2024 BMI 25.39 kg/m2 04/21/2024 Procedures Procedure Date Ordered Date Performed Result Body Sit e 00331-NVVITSP NAIL, 6 OR MORE 01/11/2024 N/A 13046-ATMMIVW NAIL, 6 OR MORE 04/21/2024 N/A Encounters Encounter Location Date Provider Diagnosis [address] [address] 07/21/2023 Spenser Nguyen Skin disease L98.9 ; Ingrowing nail L60.0 ; Pain in right toe(s) M79.674 ; Tinea unguium B35.1 and Pain in left toe(s) M79.[address] [address] 10/20/2023 Spenser Nguyen Ingrowing nail L60.0 ; Skin disease L98.9 ; Pain in right toe(s) M79.674 ; Tinea unguium B35.1 and Pain in left toe(s) M79.[address] [address] 01/11/2024 Portilloany Mccormick Onychomycosis B35.1 ; Pain in right toe(s) M79.674 and Pain in left toe(s) M79.[address] [address] 04/21/2024 Portillo Anny Onychomycosis B35.1 ; Pain in right toe(s) M79.674 and Pain in left toe(s) M79.[address] [address] 06/04/2023 Spenser Nguyen [address] [address] 04/14/2024 Portilloany Mccormick Assessments Encounter Date Diagnosis [...] Treatment Pending Test Test Name Order Date 88076-ZDWLYZP NAIL, 6 OR MORE 01/11/2024 22663-ZLPWCFQ NAIL, 6 OR MORE 04/21/2024 Next Appt Details Provider Name:Portillo Mccormick , 07/28/2024 08:45:00 AM, [address] [place], [address], Insurance Providers Payer Name Payer Address Payer Phone Subscriber Number Group Number Insured Name Patient Relationship to Insured Coverage Start Date Coverage End Date [facility] ([facility]) [address] [place], [place] [phone] [id number] Zoe Cochran Self - patient is the insured Medical (General) History Medical History History ICD Code Osteoporosis Spina bifida Measles Mumps Chicken pox Joint implants/screws Surgical History Surgery Date(Month/Year) left knee replacement 03/23/2022 right knee replacement 04/23/2017 Gall bladder removal
--- OUTSIDE RECORDS SUMMARY | 2024-05-31 12:02 | XMS_ITS ---
Author Organization [facility] Address [address] [place] [address] Care Team Providers Care Home Visits Nurse Name Role Phone Kaur Conner MD Primary Care Provider Portillo Nuno Unavailable [phone] Allergies Allergen (clinical drug ingredient) Drug/Non Drug [...] Ordered Date Performed Result Body Sit e 68516-OCEMIGW NAIL, 6 OR MORE 04/21/2024 N/A Encounters Encounter Location Date Provider Diagnosis [facility] [address] [place] [address] 04/21/2024 Portillo Mccormick Onychomycosis B35.1 ; Pain in right toe(s) M79.674 and Pain in left toe(s) M79.675 Assessments Encounter Date Diagnosis (ICD Code) Assessment Notes Treatment Notes Treatment Clinical Notes Section Notes 04/21/2024 Onychomycosis (ICD-10 - B35.1) 04/21/2024 Pain in right toe(s) (ICD-10 - M79.674) 04/21/2024 Pain in left toe(s) (ICD-10 - M79.675) Plan Of Treatment Pending Test Test Name Order Date 15995-IWGLDQG NAIL, 6 OR MORE 04/21/2024 Next Appt Details Follow Up: prn, Reason: Provider Name:Portillo Mccormick , 07/28/2024 08:45:00 AM, [address] [place], [address], Procedure Notes * Category Sub-Category Detail Notes [...] use of a nail nipper and/or dremel-type thread tool grinder set up operator, to a more viable healthy nail plate [...] to maintain effectiveness in symptomatic relief - 42797 Progress Notes * Yanick MARMOLEJO:[birth year] (78 yo F)Acc No.[id number]:04/21/2024 Progress Note Patient:?Zoe MARMOLEJO Provider:?Portillo Mccormick DPM :1945???Age:78 Y???Sex:Female D ate:04/21/2024 Address:[address] [place] [address] familia [id number] Pcp:Kaur Conner MD Subjective: * Chief Complaints: [...] use of a nail nipper and/or dremel-type thread tool grinder set up operator, to a more viable healthy nail plate [...] to maintain effectiveness in symptomatic relief - 91701.? * Procedure Codes:?75170 DEBRI DE NAIL, 6 OR MORE * Follow Up:?prn * Images: * Sign off status: Completed true * Provider:?Portillo Mccormick DPM Date:?2024 Generated for Georges hazel/Aidan/Yanira on:?05/31/2024 12:02 PM EDT History and Physical Notes * HPI [...]
--- OUTSIDE RECORDS SUMMARY | 2024-05-31 12:02 | XMS_ITS | Clinical Summary ---
Author Organization [facility] Address [address] [place] [address] Care Team Providers Care Cash Management Clerk Name Role Phone Angeilta Pedro NP Primary Care Provider Unavailabl e [...] Influencers of Health Screening 01/29/2022 COVID-19 Vaccine (2023-2 5 season) 2023 06/25/2020 Influenza Vaccine (Season Ended) 2024 HIB Vaccines Aged Out No longer eligi [...] age to complete this topic Care Teams Cash Management Clerk Relationship Specialty Start Date End Date Angelita Pedro NP PCP - General Internal Medicine 09/18/21
--- OUTSIDE RECORDS SUMMARY | 2024-05-31 12:02 | XMS_ITS ---
Author Organization [facility] Address [address] [place] [address] Care Team Providers Care Racing Board Marker Name Role Phone Kaur Conner MD Primary Care Provider Portillo Nuno Unavailable [phone] Allergies Allergen (clinical drug ingredient) Drug/Non Drug [...] Active Encounters Encounter Location Date Provider Diagnosis [address] [address] 04/14/2024 Portillo Mccormick Plan Of Treatment Next Appt Details Provider Name:Portillo Mccormick , 07/28/2024 08:45:00 AM, [address] [place] [address], [address], Progress Notes * Adina MARMOLEJOaDOB:[birth year] (78 yo F)Acc No.[id number]:04/14/2024 Progress Note Patient:?JALEELAdinaa Provider:?Portillo Mccormick DPM :1945???Age:78 Y???Sex:Female D ate:04/14/2024 Address:[address] [place] [address], [id number] Pcp:Kaur Conner MD Subjective: * Chief Complaints: [...] DPM Date:?2024 Generated for Georges hazel/Aidan/Yanira on:?05/31/2024 12:01 PM EDT
== END 2024-05-30 10:34 | disposition home or self-care (01) ==
LOC: HO.HOSX 10:33
PROVIDERS: Visit Provider Orthopaedic Surgery
DX: M25.562 Pain in left knee (principal)
CPT/HCPCS: 73562

== ENCOUNTER 2024-06-06 12:12 | Outpatient (AMB) | payer OTHER, SELFPAY ==
[2024-06-06 12:51] VITALS: BP 126/66; PULSE 76; RESP 18; O2SAT 97; BMI 25.8
--- NOTE | 2024-06-06 12:51 | A.OFFPC_ITS ---
Vital Signs 06/06/24 12:51 Height 5 ft Weight 132 lb BMI 25.8 BP 126/66 Blood Pressure Location Lt brachial Position Sitting Respiration 18 Pulse 76 Pulse Source Pulse Oximeter Pulse Oximetry (%) 97 Oxygen Delivery Method Room Air Intake Visit Reasons: 2 month F/U Intake Note: Pt is here today for 2 months follow up visit. Pt states that she gets numbness and tingling in her hands. Allergies shellfish Allergy (Mild, Uncoded 06/06/24 12:51) Unknown Medication List - Last Reconciled 06/06/24 by Kaur Conner MD brimonidine 0.2% drps ophthalmic (eye) multivitamin (Multiple Vitamins tablet) 1 tab PO DAILY Tobacco use date assessed: 06/06/24 Fall risk assessment: No Falls in past year Last assessed Fall Risk: 06/06/24 Dental Screening Dental Screen Date: 03/22/24 HPI 2 month F/U HPI Details Patient presents for the follow-up. She reports worsening hearing loss and would like to be referred for hearing test. Patient has not start taking vitamin D supplement. [facility] Surgical History History of right knee surgery (~2017) History of left knee surgery (~03/24/22) Family History Father Heavy smoker Mother Diabetes Social History Household Members Other:: lives with daughter, exercise 2 x week Housing: House Patient Tobacco Use Status: Former Tobacco user e-Cigarette/Vaping Use: Never Used service: No Current occupational status: retired Cognitive needs: No Hearing needs: No Vision needs: Yes Questionnaire Thrive Questionnaire Date Thrive assessed: 03/22/24 CARLY-7 AMB Questionnaire CARLY-7 Date CARLY - 7 assessed: 03/22/24 Source: Developed by Drs. Marty Morton, Tiffany Husain, Paras Herbert and colleagues, with an educational tobias from [employer] Review of Systems Const All systems reviewed & are unremarkable except as noted in HPI and below Eyes Reports no additional complaints ENT Reports no additional complaints Card Reports no additional complaints Resp Reports no additional complaints GI Reports no additional complaints Reports no additional complaints Physical exam (Primary Care) Vital Signs: Last Vital Signs Pulse 76 06/06/24 12:51 Resp 18 06/06/24 12:51 BP 126/66 06/06/24 12:51 Pulse Ox 97 06/06/24 12:51 Oxygen Delivery Method Room Air 06/06/24 12:51 BMI result Body Mass Index 25.8 Tobacco/Smoking Status: Tobacco use Status Tobacco use date assessed 06/06/24 06/06/24 12:51 Patient Tobacco Use Status Former Tobacco user 06/06/24 12:51 e-Cigarette/Vaping Use Never Used 06/06/24 12:51 Thrive Assessment: Date of Thrive Assessment Date Thrive assessed 03/22/24 06/06/24 12:51 Const General: no acute distress HENMT Head: Yes normal to inspection Face and sinus: Yes normal facial exam Resp Effort & Inspection: normal respiratory effort Auscultation: clear to auscultation bilaterally Cardio Rhythm: regular rhythm Heart sounds: S1 normal heart sound present and S2 normal heart sound present Coding Level of Care Code Est Pt Level 3 (20066) Diagnoses Hearing loss H91.90 Vitamin D deficiency E55.9 Assessment & Plan Assessment & Plan (1) Hearing loss: Code(s): H91.90 - Unspecified hearing loss, unspecified ear Category: Medical Plan: Referred to speech and hearing for hearing test (2) Vitamin D deficiency: Code(s): E55.9 - Vitamin D deficiency, unspecified Category: Medical Plan: Patient was advised to start taking 2000 units of vitamin D3 she will return for physical in 1 year with a fasting labs before Orders: Orders Comprehensive [place]. Panel Fast 1 Year E55.9 - Vitamin D deficiency, unspecified, Z00.00 - Encounter for general adult medical examination without abnormal findings TSH reflex Free T4 1 Year E55.9 - Vitamin D deficiency, unspecified, Z00.00 - Encounter for general adult medical examination without abnormal findings Complete Blood Count Auto Diff 1 Year E55.9 - Vitamin D deficiency, unspecified, Z00.00 - Encounter for general adult medical examination without abnormal findings Lipid Panel 1 Year E55.9 - Vitamin D deficiency, unspecified, Z00.00 - Encounter for general adult medical examination without abnormal findings Vitamin D 25-OH Total 1 Year E55.9 - Vitamin D deficiency, unspecified, Z00.00 - Encounter for general adult medical examination without abnormal findings Referrals Speech and Hearing Referral H91.90 - Unspecified hearing loss, unspecified ear
--- OUTSIDE RECORDS SUMMARY | 2024-06-06 14:57 | XMS_ITS ---
Author Organization [facility] Address [address] [place] [address] Care Team Providers Care Can Dragger Name Role Phone Kaur Conner MD Primary Care Provider Portillo Nuno Unavailable [phone] Allergies Allergen (clinical drug ingredient) Drug/Non Drug [...] Ordered Date Performed Result Body Sit e 03833-NSEGCTR NAIL, 6 OR MORE 04/21/2024 N/A Encounters Encounter Location Date Provider Diagnosis [facility] [address] [place] [address] 04/21/2024 Portillo Mccormick Onychomycosis B35.1 ; Pain in right toe(s) M79.674 and Pain in left toe(s) M79.675 Assessments Encounter Date Diagnosis (ICD Code) Assessment Notes Treatment Notes Treatment Clinical Notes Section Notes 04/21/2024 Onychomycosis (ICD-10 - B35.1) 04/21/2024 Pain in right toe(s) (ICD-10 - M79.674) 04/21/2024 Pain in left toe(s) (ICD-10 - M79.675) Plan Of Treatment Pending Test Test Name Order Date 35647-KMJTGEH NAIL, 6 OR MORE 04/21/2024 Next Appt Details Follow Up: prn, Reason: Provider Name:Portillo Mccormick , 07/28/2024 08:45:00 AM, [address] [place], [address], Procedure Notes * Category Sub-Category Detail Notes [...] use of a nail nipper and/or dremel-type skull grinder, to a more viable healthy nail [...] to maintain effectiveness in symptomatic relief - 21133 Progress Notes * Yanick MARMOLEJO:[birth year] (78 yo F)Acc No.[id number]:04/21/2024 Progress Note Patient:?Zoe MARMOLEJO Provider:?Portillo Mccormick DPM :1945???Age:78 Y???Sex:Female D ate:04/21/2024 Address:[address] [place] [address] familia [facility] Pcp:Kaur Conner MD Subjective: * Chief Complaints: [...] use of a nail nipper and/or dremel-type skull grinder, to a more viable healthy nail [...] to maintain effectiveness in symptomatic relief - 16752.? * Procedure Codes:?98992 DEBRI DE NAIL, 6 OR MORE * Follow Up:?prn * Images: * Sign off status: Completed true * Provider:?Portillo Mccormick DPM Date:?2024 Generated for Georges hazel/Aidan/Yanira on:?06/06/2024 02:57 PM EDT History and Physical Notes * [...]
--- OUTSIDE RECORDS SUMMARY | 2024-06-06 14:57 | XMS_ITS ---
Author Organization [facility] Address [address] [place] [address] Care Team Providers Care Marine Pilot Name Role Phone Kaur Conner MD Primary Care Provider Portillo Nuno Unavailable [phone] Allergies Allergen (clinical drug ingredient) Drug/Non Drug [...] Encounters Encounter Location Date Provider Diagnosis [address] [address] 04/14/2024 Portillo Mccormick Plan Of Treatment Next Appt Details Provider Name:Portillo Mccormick , 07/28/2024 08:45:00 AM, [address] [place] [address], [address], Progress Notes * Adina MARMOLEJOaDOB:[birth year] (78 yo F)Acc No.[id number]:04/14/2024 Progress Note Patient:?JALEELAdinaa Provider:?Portillo Mccormick DPM :1945???Age:78 Y???Sex:Female D ate:04/14/2024 Address:[address] [place] [address], fam[id number] Pcp:Kaur Conner MD Subjective: * Chief Complaints: [...] DPM Date:?2024 Generated for Georges hazel/Aidan/Yanira on:?06/06/2024 02:56 PM EDT
--- OUTSIDE RECORDS SUMMARY | 2024-06-06 14:57 | XMS_ITS | Clinical Summary ---
Author Organization [facility] Address [address] [place] [address] Care Team Providers Care Diesel Technician Name Role Phone Angelita Pedro AIRCRAFT INSTRUMENT ENGINEER Primary Care Provider [phone] Allergies Active Allergy Reactions Criticality Noted Date [...] to complete this topic Care Teams Diesel Technician Relationship Specialty Start Date End Date Angelita Pedro AIRCRAFT INSTRUMENT ENGINEER [address] [facility] [place] [address] PCP - General Family Medicine 11/05/16
--- OUTSIDE RECORDS SUMMARY | 2024-06-06 14:57 | XMS_ITS | Data Portability ---
Author Organization [facility] [place] Address [address] [facility] [address] [place] [address] Care Team Providers Care Ambulance Dispatcher Name Role Phone TREVOR ARAGON Primary Care [...] Time Osteoarthri tis of right knee joint 1109048081014 00 Active 2022 Josh Cooley MD [address] [facility] [address], [place], [address] [facility], 13:36:18 Problem Notes None recorded. Procedures Surgical History Date Name Laterality Status Provider Name and Address Organization Details Recorded Time Hysterectomy completed Estella Perez [facility], 05/12/2022 09:32:54 cholecystectomy completed Estella Perez [facility] 05/12/2022 09:33:34 Imaging Results None recorded. [...] Updated DateTime 05/12/2022 152.4 cm 27.3 kg/m2 76442.[address] [facility] 05/12/2022 09:32:27 Social History None recorded. [...] Diagnosis ICD10 Code Diagnosis Note 1370 MD KLA Shelton [address] [facility] [address] [facility] [place] [address] 05/12/2022 13:04:18 05/12/2022 13:38:00 Knee joint prosthesis present 7902556591 02 Z96.659 Health Concerns Section Related Observation LastModified by Organization Detai ls LastModified Time None Recorded Concern Status LastModified by Organization Details LastModified Time None Recorded Advance Directives Directive None Recorded Payers Encounter Date Sequence Insurance Name Policy Number Policy Black Covered Member ID Black Member ID Guarantor Name 05/12/2022 1 [employer] (PPO) [id number] Zoe Paris Baldo [id number] Zoe Bland Notes Date Note Type Note [...] for follow-up evaluation. CRISTINA MASTERSON PA-C [address] [facility] [address], [place], [address], [facility] 05/12/2022 13:27:44 OBGyn Episode No OBEpisode recorded.
--- OUTSIDE RECORDS SUMMARY | 2024-06-06 14:57 | XMS_ITS | Patient Health Record ---
Author Organization [facility] Address [address] [place] [address] Care Team Providers Care Clothes Model Name Role Phone Kaur Conner MD Primary Care Provider Unavaila Portillo Bell Unavailable [phone] Spenser Nguyen Unavailable [phone] Judith Chavez Unavailable [phone] Allergies Allergen (clinical drug ingredient) Drug/Non Drug [...] Problem Status W/U Status Risk Notes Problem 391369453 Onychomycosis (B35.1) Active confirmed Vital Signs Blood pressure diastolic 80 mm Hg 04/21/2024 Height 5 ft in 04/21/2024 Blood pressure systolic 120 mm Hg 04/21/2024 Weight 130 lbs 04/21/2024 BMI 25.39 kg/m2 04/21/2024 Procedures Procedure Date Ordered Date Performed Result Body Sit e 50980-JUFQWHG NAIL, 6 OR MORE 01/11/2024 N/A 19134-NMBPHAJ NAIL, 6 OR MORE 04/21/2024 N/A Encounters Encounter Location Date Provider Diagnosis [address] [address] 07/21/2023 Spenser Nguyen Skin disease L98.9 ; Ingrowing nail L60.0 ; Pain in right toe(s) M79.674 ; Tinea unguium B35.1 and Pain in left toe(s) M79.[address] [address] 10/20/2023 Spenser Nguyen Ingrowing nail L60.0 ; Skin disease L98.9 ; Pain in right toe(s) M79.674 ; Tinea unguium B35.1 and Pain in left toe(s) M79.[address] [address] 01/11/2024 Portillo Mccormick Onychomycosis B35.1 ; Pain in right toe(s) M79.674 and Pain in left toe(s) M79.[address] [address] 04/21/2024 Portillo Mccormick Onychomycosis B35.1 ; Pain in right toe(s) M79.674 and Pain in left toe(s) M79.[address] [address] 04/14/2024 Portillo Mccormick Assessments Encounter Date Diagnosis (ICD Code) [...] Treatment Pending Test Test Name Order Date [id number] NAIL, 6 OR MORE 01/11/2024 26255-QJPBRDI NAIL, 6 OR MORE 04/21/2024 Next Appt Details Provider Name:Portillo Mccormick , 07/28/2024 08:45:00 AM, [address] [place], [address], Insurance Providers Payer Name Payer Address Payer Phone Subscriber Number Group Number Insured Name Patient Relationship to Insured Coverage Start Date Coverage End Date [facility] ([facility] [address] [place] [address] [phone] [id number] Zoe Cochran Self - patient is the insured Medical (General) History Medical History History ICD Code Osteoporosis Spina bifida Measles Mumps Chicken pox Joint implants/screws Surgical History Surgery Date(Month/Year) left knee replacement 03/23/2022 right knee replacement 04/23/2017 Gall bladder removal
--- OUTSIDE RECORDS SUMMARY | 2024-06-06 14:58 | XMS_ITS | Clinical Summary ---
Author Organization [facility] Address [address] [place] [address] Care Team Providers Care General Operations Agent Name Role Phone Angelita Pedro NP Primary [...] age to complete this topic Care Teams General Operations Agent Relationship Specialty Start Date End Date Angelita Pedro NP PCP - General Internal Medicine 09/18/21
== END 2024-06-06 13:42 | disposition home or self-care (01) ==
LOC: HO.HMCC 12:12
PROVIDERS: PCP Internal Medicine; Visit Provider Internal Medicine
DX: H91.90 Unspecified hearing loss, unspecified ear (principal); E55.9 Vitamin D deficiency, unspecified

== ENCOUNTER → 2024-06-06 12:12 | Outpatient (BNVA) | payer OTHER, SELFPAY | PROVIDERS: PCP Internal Medicine; Visit Provider Internal Medicine | DX: Z13.89 Encounter for screening for other disorder (principal) ==

== ENCOUNTER 2024-06-30 14:03 | Outpatient (REF) | payer OTHER, SELFPAY ==
--- OUTSIDE RECORDS SUMMARY | 2024-06-30 14:05 | XMS_ITS ---
Author Organization [facility] Address [address] [place] [address] Care Team Providers Care Computer Aide Name Role Phone Kaur Conner MD Primary Care Provider Portillo Nuno Unavailable [phone] Allergies Allergen (clinical drug ingredient) Drug/Non Drug [...] Active Encounters Encounter Location Date Provider Diagnosis [address] [address] 04/14/2024 Portillo Mccormick Plan Of Treatment Next Appt Details Provider Name:Portillo Mccormick , 07/28/2024 08:45:00 AM, [address] [place] [address], [address], Progress Notes * Adina MARMOLEJOaDOB:[birth year] (78 yo F)Acc No.[id number]:04/14/2024 Progress Note Patient:?JALEELAdinaa Provider:?Portillo Mccormick DPM :1945???Age:78 Y???Sex:Female D ate:04/14/2024 Address:[address] [place] [address], [id number] Pcp:Kaur Conner MD Subjective: * Chief Complaints: [...] Mccormick DPM Date:?2024 Generated for Georges hazel/Aidan/Yanira on:?06/30/2024 02:05 PM EDT
--- OUTSIDE RECORDS SUMMARY | 2024-06-30 14:05 | XMS_ITS | Patient Health Record ---
Author Organization [facility] Address [address] [place] [address] Care Team Providers Care Field Marketing Manager Name Role Phone Kaur Conner MD Primary Care Provider Unavaila Portillo Bell Unavailable [phone] Spenser Nguyen Unavailable [phone] Judith Chavez Unavailable [phone] Allergies Allergen (clinical drug ingredient) Drug/Non Drug [...] Problem Status W/U Status Risk Notes Problem 908706600 Onychomycosis (B35.1) Active confirmed Vital Signs Blood pressure diastolic 80 mm Hg 04/21/2024 Height 5 ft in 04/21/2024 Blood pressure systolic 120 mm Hg 04/21/2024 Weight 130 lbs 04/21/2024 BMI 25.39 kg/m2 04/21/2024 Procedures Procedure Date Ordered Date Performed Result Body Sit e 85560-HZJXXUE NAIL, 6 OR MORE 01/11/2024 N/A 80497-GACWOLP NAIL, 6 OR MORE 04/21/2024 N/A Encounters Encounter Location Date Provider Diagnosis [address] [address] 07/21/2023 Spenser Nguyen Skin disease L98.9 ; Ingrowing nail L60.0 ; Pain in right toe(s) M79.674 ; Tinea unguium B35.1 and Pain in left toe(s) M79.[address] [address] 10/20/2023 Spenser Nguyen Ingrowing nail L60.0 ; Skin disease L98.9 ; Pain in right toe(s) M79.674 ; Tinea unguium B35.1 and Pain in left toe(s) M79.[address] [address] 01/11/2024 Portillo Mccormick Onychomycosis B35.1 ; Pain in right toe(s) M79.674 and Pain in left toe(s) M79.[address] [address] 04/21/2024 Portillo Mccormick Onychomycosis B35.1 ; Pain in right toe(s) M79.674 and Pain in left toe(s) M79.[address] [address] 04/14/2024 Portillo Mccormick Assessments Encounter Date Diagnosis [...] Treatment Pending Test Test Name Order Date [id number] NAIL, 6 OR MORE 01/11/2024 10695-TYCLFIF NAIL, 6 OR MORE 04/21/2024 Next Appt Details Provider Name:Portillo Mccormick , 07/28/2024 08:45:00 AM, [address] [place], [address], Insurance Providers Payer Name Payer Address Payer Phone Subscriber Number Group Number Insured Name Patient Relationship to Insured Coverage Start Date Coverage End Date [facility] ([facility]) [address] [place] [address] [id number] Zoe Cochran Self - patient is the insured Medical (General) History Medical History History ICD Code Osteoporosis Spina bifida Measles Mumps Chicken pox Joint implants/screws Surgical History Surgery Date(Month/Year) left knee replacement 03/23/2022 right knee replacement 04/23/2017 Gall bladder removal
--- OUTSIDE RECORDS SUMMARY | 2024-06-30 14:05 | XMS_ITS ---
Author Organization [facility] Address [address] [place] [address] Care Team Providers Care Greeting Card Writer Name Role Phone Kaur Conner MD Primary Care Provider Portillo Nuno [phone] REASON FOR VISIT same day rs 04/14/24 Encounters Encounter Location Date Provider Diagnosis [address] [address] 04/14/2024 Portillo Mccormick Plan Of Treatment Next Appt Details Provider Name:Portillo Mccormick , 07/28/2024 08:45:00 AM, [address] [place], [address], Progress Notes * Adina MARMOLEJOaDOB:[birth year] (78 yo F)Acc No.[id number]:04/14/2024 Patient:?Zoe MARMOLEJO :1945???Age:78 Y???Sex:Female Address:[address] [place] [address], [place], [address] * true * Date:? Generated for Printi ilir/Aidan/eTransmitting on:?06/30/2024 02:05 PM EDT
--- OUTSIDE RECORDS SUMMARY | 2024-06-30 14:05 | XMS_ITS ---
Author Organization [facility] Address [address] [place] [address] Care Team Providers Care Test Engineering Manager Name Role Phone Kaur Conner MD Primary Care Provider Portillo Nuno Unavailable [phone] Allergies Allergen (clinical drug ingredient) Drug/Non Drug [...] Ordered Date Performed Result Body Sit e 43210-YIBHXFG NAIL, 6 OR MORE 04/21/2024 N/A Encounters Encounter Location Date Provider Diagnosis [facility] [address] [place] [address] 04/21/2024 Portillo Mccormick Onychomycosis B35.1 ; Pain in right toe(s) M79.674 and Pain in left toe(s) M79.675 Assessments Encounter Date Diagnosis (ICD Code) Assessment Notes Treatment Notes Treatment Clinical Notes Section Notes 04/21/2024 Onychomycosis (ICD-10 - B35.1) 04/21/2024 Pain in right toe(s) (ICD-10 - M79.674) 04/21/2024 Pain in left toe(s) (ICD-10 - M79.675) Plan Of Treatment Pending Test Test Name Order Date [id number] NAIL, 6 OR MORE 04/21/2024 Next Appt Details Follow Up: prn, Reason: Provider Name:Portillo Mccormick , 07/28/2024 08:45:00 AM, [address] [place], [address], Procedure Notes * Category Sub-Category Detail Notes [...] use of a nail nipper and/or dremel-type sapphire stylus grinder, to a more viable healthy nail [...] to maintain effectiveness in symptomatic relief - 90140 Progress Notes * Yanick MARMOLEJO:[birth year] (78 yo F)Acc No.[id number]:04/21/2024 Progress Note Patient:?Zoe MARMOLEJO Provider:?Portillo Mccormick DPM :1945???Age:78 Y???Sex:Female D ate:04/21/2024 Address:[address] [place] [address] familia [facility] Pcp:Kaur Conner MD Subjective: * Chief Complaints: [...] Cramps/ Resting?denies.?Muscle cramps / walking?denies.?Generalized aches and pains?denies.?Weakness?denies.?Integ.:?Velasquze?denies.?Scars?denies.?Corns/calluses?admits.?Ingrown nails?admits.?Painful nails?admits.?Open Sores?denies.?Rashes?denies.?Neurologic:?Difficulty sleeping?denies.?Brain disorder?denies.?Numbness?denies.?Balance trouble?denies.?Confusion?denies.?Fainting/blackouts?denies.?Tingling?denies.?Tr emors?denies.? [...] use of a nail nipper and/or dremel-type sapphire stylus grinder, to a more viable healthy nail [...] to maintain effectiveness in symptomatic relief - 07761.? * Procedure Codes:?96050 DEBRI DE NAIL, 6 OR MORE * Follow Up:?prn * Images: * Sign off status: Completed true * Provider:?Portillo Mccormick DPM Date:?2024 Generated for Georges hazel/Aidan/Yanira on:?06/30/2024 02:05 PM EDT History and Physical Notes * [...]
--- OUTSIDE RECORDS SUMMARY | 2024-06-30 14:06 | XMS_ITS | Clinical Summary ---
Author Organization [facility] Address [address] [place] [address] Care Team Providers Care Wood Heel Cementer Name Role Phone Angelita Pedro NP Primary [...] age to complete this topic Care Teams Wood Heel Cementer Relationship Specialty Start Date End Date Angelita Pedro NP PCP - General Internal Medicine 09/18/21
--- OUTSIDE RECORDS SUMMARY | 2024-06-30 14:06 | XMS_ITS | Clinical Summary ---
Author Organization [facility] Address [address] [place] [address] Care Team Providers Care Roustabout Hand Name Role Phone Angelita Pedro AERONAUTICS TEACHER Primary Care Provider [phone] Allergies Active Allergy Reactions Criticality Noted Date [...] age to complete this topic Care Teams Roustabout Hand Relationship Specialty Start Date End Date Angelita Pedro AERONAUTICS TEACHER [address] [facility] [place] [address] PCP - General Family Medicine 11/05/16
--- OUTSIDE RECORDS SUMMARY | 2024-06-30 14:06 | XMS_ITS | Data Portability ---
Author Organization [facility] [place] Address [address] [facility] [address] [place] [address] Care Team Providers Care Snow Maker Name Role Phone TREVOR ARAGON Primary Care Provider [phone] Assessment Encounter Date Assessment Date Assessment LastModified [...] Time Osteoarthri tis of right knee joint [id number] 00 Active 2022 Josh Cooley MD [address] [facility] [address], [place], [address] [facility], 13:36:18 Problem Notes None recorded. Procedures Surgical History Date Name Laterality Status Provider Name and Address Organization Details Recorded Time Hysterectomy completed Estella Perez [facility], 05/12/2022 09:32:54 cholecystectomy completed Estella Perez [facility] 05/12/2022 09:33:34 Imaging Results None recorded. [...] Updated DateTime 05/12/2022 152.4 cm 27.3 kg/m2 98651.[address] [facility] 05/12/2022 09:32:27 Social History None recorded. [...] Code Diagnosis ICD10 Code Diagnosis Note [address] [facility] [address] [place] [address] 05/12/2022 13:04:18 05/12/2022 13:38:00 Knee joint prosthesis present 8595782788 02 Z96.659 Health Concerns Section Related Observation LastModified by Organization Detai ls LastModified Time None Recorded Concern Status LastModified by Organization Details LastModified Time None Recorded Advance Directives Directive None Recorded Payers Encounter Date Sequence Insurance Name Policy Number Policy Black Covered Member ID Black Member ID Guarantor Name 05/12/2022 1 MULTIPLAN - UNICARE (PPO) [id number] Zoe Paris Baldo [id number] Zoe Bland Notes Date Note Type Note [...] for follow-up evaluation. CRISTINA MASTERSON PA-C [address] [facility] [address], [place], [address], [place] [facility] 05/12/2022 13:27:44 OBGyn Episode No OBEpisode recorded.
== END 2024-06-30 14:04 | disposition home or self-care (01) ==
LOC: HO.SH 14:03
PROVIDERS: Visit Provider Internal Medicine
DX: Z01.118 Encounter for examination of ears and hearing with other abnormal findings (principal); H90.3 Sensorineural hearing loss, bilateral
CPT/HCPCS: 92557; 92567

== ENCOUNTER 2024-07-21 08:30 | Outpatient (REF) | payer SELFPAY ==
--- OUTSIDE RECORDS SUMMARY | 2024-07-21 08:31 | XMS_ITS ---
Author Organization [facility] Address [address] [place] [address] Care Team Providers Care Food And Beverage Manager Name Role Phone Kaur Conner MD Primary Care Provider Portillo Nuno Unavailable [phone] Allergies Allergen (clinical drug ingredient) Drug/Non Drug [...] Active Encounters Encounter Location Date Provider Diagnosis [address] [address] 04/14/2024 Portillo Mccormick Plan Of Treatment Next Appt Details Provider Name:Portillo Mccormick , 07/28/2024 08:45:00 AM, [address] [place] [address], [address], Progress Notes * Adina MARMOLEJOaDOB:[birth year] (78 yo F)Acc No.[id number]:04/14/2024 Progress Note Patient:?JALEELAdinaa Provider:?Portillo Mccormick DPM :1945???Age:78 Y???Sex:Female D ate:04/14/2024 Address:[address] [place] [address], [id number] Pcp:Kaur Conner MD Subjective: * Chief Complaints: [...] Mccormick DPM Date:?2024 Generated for Georges hazel/Aidan/Yanira on:?07/21/2024 08:31 AM EDT
--- NOTE | 2024-07-21 14:05 | MHC.AU.HA1 ---
Hearing Aid Evaluation Date of Visit: 07/21/24 Historical Information: Description of Hearing: Within normal to 1kHz gradually sloping to moderately severe sensorineural hearing loss, bilateral. Current personal amplification information, if applicable: None Summary: Reviewed amplification styles, technology levels, costs. Discussed maintenance needs. Recommended RITE. Selected active level, rechargeable, declined service plan. Zoe is not interested in pairing hearing aids with a smartphone. She will be submitting for insurance reimbursement. Hearing Aid Prescription: Based on the individual?s shared listening needs, communication environments, dexterity, desire for connectivity, and personal preferences, the following prescription for amplification has been made: Right ear: Make, Model, Color: Oticon Intent 3 silver Battery Size: Rechargeable Sales Exec/Slim Tube: 2 85 Type of Earmold/Dome/CShell/SlimTip: 6mm dbl branch Left ear: Make, Model, Color: Oticon Intent 3 silver Battery Size: Rechargeable Sales Exec/Slim Tube: 2/85 Type of Earmold/Dome/CShell/SlimTip: 6mm dbl jose carlos Plan of Care: Patient wishes to purchase hearing aids as prescribed Action Taken/Action Needed: Hearing Instrument Fitting to be scheduled when materials arrive Primary Diagnosis: H90.3 Bilateral Sensorineural Hearing Loss Signature: Provider: Jeffy Perrin, [facility]
== END 2024-07-21 08:31 | disposition home or self-care (01) ==
LOC: HO.HAP 08:30
PROVIDERS: Visit Provider Internal Medicine
DX: Z46.1 Encounter for fitting and adjustment of hearing aid (principal); H90.3 Sensorineural hearing loss, bilateral
CPT/HCPCS: 92590

== ENCOUNTER 2024-09-01 08:51 | Outpatient (REF) | payer SELFPAY ==
--- OUTSIDE RECORDS SUMMARY | 2024-09-01 09:00 | XMS_ITS | Clinical Summary ---
Author Organization [facility] Address [address] [place] [address] Care Team Providers Care Stylist Apprentice Name Role Phone Angelita Pedro CORE ANALYSIS OPERATOR Primary Care Provider [phone] Allergies Active Allergy Reactions Criticality Noted Date [...] - - Pulse - - Temperature 36 C (96.8 F) 05/12/2019 9:07 AM EDT Respiratory Rate - [...] 5 season) 2023 06/25/2020 Influenza Vaccine (#1) 2024 Hepatitis B Vaccines Aged Out No long er eligible based on patient's age to complete this topic RSV Ped < 20 months Aged Out No longe r eligible based on patient's age to complete this topic Care Teams Stylist Apprentice Relationship Specialty Start Date End Date Angelita Pedro CORE ANALYSIS OPERATOR [address] [facility] [place] [id number] PCP - General Family Medicine 11/05/16
--- OUTSIDE RECORDS SUMMARY | 2024-09-01 09:00 | XMS_ITS | Data Portability ---
Author Organization [facility] [place] Address [address] [place] [address] Care Team Providers Care Dietary Aide Name Role Phone EDWINTREVOR Jin Primary Care Provider Assessment Encounter Date Assessment [...] Time Osteoarthri tis of right knee joint [id number] 00 Active 2022 Josh Cooley MD [address] [facility] [address], [place], [address] , [place] [facility], 13:36:18 Problem Notes None recorded. Procedures Surgical History Date Name Laterality Status Provider Name and Address Organization Details Recorded Time Hysterectomy completed Estella Perez [facility], 05/12/2022 09:32:54 cholecystectomy completed Estella Perez [facility] P 05/12/2022 09:33:34 Imaging Results None recorded. [...] Updated DateTime 05/12/2022 152.4 cm 27.3 kg/m2 [address]6781.[address] [facility] 05/12/2022 09:32:27 Social History None recorded. [...] Diagnosis Note [address] [facility] [address] [place] [address] 05/12/2022 13:04:18 05/12/2022 13:38:00 Knee joint prosthesis present 8212331831 02 Z96.659 Health Concerns Section Related Observation LastModified by Organization Detai ls LastModified Time None Recorded Concern Status LastModified by Organization Details LastModified Time None Recorded Advance Directives Directive None Recorded Payers Insurance Date Sequence Insurance Name Policy Number Policy Black Covered Member ID Black Member ID Guarantor Name 06/10/2022 1 MULTIPLAN - UNICARE (PPO) [id number] Zoe Lenahan [id number] Zoe Baldo Notes Date Note Type Note Provider Name [...] for follow-up evaluation. CRISTINA MASTERSON PA-C [address] [facility] [address], [place], [address], [place] [facility] 05/12/2022 13:27:44 OBGyn Episode No OBEpisode recorded.
--- OUTSIDE RECORDS SUMMARY | 2024-09-01 09:00 | XMS_ITS | Clinical Summary ---
[facility] Address [address] [place] [address] Care Team Providers Care Customer Support Agent Name Role Phone Angelita Pedro NP [...] season) 2023 06/25/2020 Influenza Vaccine (#1) 2024 HIB Vaccines Aged Out No longer [...] age to complete this topic Care Teams Customer Support Agent Relationship Specialty Start Date End Date Angelita Pedro NP PCP - General Internal Medicine 09/18/21
--- NOTE | 2024-09-01 10:56 | MHC.AU.HA2 ---
Hearing Instrument Fitting- Adult- Binaural Date of Visit: 09/01/24 Hearing Instruments Dispensed: Right Ear: Make, Model, Color, Serial Number: Oticon Intent 3 silver [id number] Hi Teacher Repair Warranty: 08/26/2027 Hi Teacher Loss and Damage Warranty: 08/26/2027 [facility] Service Plan: opt out Battery Size: Rechargeable Back End Web Developer/Slim Tube: 2 85 w/tail Earmold/Dome/CShell/SlimTip: 6mm dbl branch Type of Wax Guard: Minifit Prowax Left Ear: Make, Model, Color, Serial Number: Oticon Intent 3 mer [id number] Hi Teacher Repair Warranty: 08/26/2027 Hi Teacher Loss and Damage Warranty: 08/26/2027 [facility] Service Plan: opt out Battery Size: Rechargeable Back End Web Developer/Slim Tube: 2/85 w/tail Earmold/Dome/CShell/SlimTip: 6mm dbl jose carlos Type of Wax Guard: Minifit Prowax Accessories/Assistive Technology: Oticon Developer Support Engineer Minirite S#[id number] Warranty 08/26/2027 Summary of Fitting: Fit with and oriented to binaural Oticon Intent 3 R HAs. Verified to NAL NL2 adult targets. Zoe indicated they felt too loud immediately. Reduced to adaptation 2 with automatic gradual increase. Counseled on adjustment to amplification. Reviewed charging, maintenance procedures, precautions. VC disabled. Practiced insertion and removal. Zoe decided to bring her hearing aids home in the case rather than wear them out because she was concerned the sounds of her car and traffic might be too distracting while driving home today. Provided itemized receipt. Recommendations: Recommendations: A hearing instrument follow-up was scheduled. Diagnosis Code(s): Primary Diagnosis: H90.3 Bilateral Sensorineural Hearing Loss Signature: Provider: Jeffy Perrin, [facility]
== END 2024-09-01 08:52 | disposition home or self-care (01) ==
LOC: HO.HAP 08:51
PROVIDERS: Visit Provider Internal Medicine
DX: Z46.1 Encounter for fitting and adjustment of hearing aid (principal); H90.3 Sensorineural hearing loss, bilateral
CPT/HCPCS: V5261

== ENCOUNTER 2024-09-29 08:25 | Outpatient (REF) | payer SELFPAY ==
--- OUTSIDE RECORDS SUMMARY | 2024-04-14 05:00 | XMS_ITS ---
Author Organization [facility] Address [address] [place] [address] Care Team Providers Care Sap Data Architect Name Role Phone Kaur Conner MD Primary Care Provider Portillo Nuno Unavailable [phone] Allergies Allergen (clinical drug ingredient) Drug/Non Drug Allergy documented on EMR Reaction Allergy Type Onset Date Status Shrimp Flavor Unknown Drug Allergy Act mine Medications Medication SIG (Take, Route, Frequency, Duration) Notes Start Date End Date Status Brimonidine Tartrate 0.2 % INSTILL 1 REJI P IN LEFT EYE TWICE DAILY. 12 HOURS APART Ophthalmic; Duration: 90 Days Active Encounters Encounter Location Date Provider Diagnosis [address] [address] 04/14/2024 Portillo Mccormick Plan Of Treatment Next Appt Details Provider Name:Portillo Mccormick , 11/03/2024 09:15:00 AM, [address] [place] [address], [phone], Progress Notes * Adina MARMOLEJOaDOB:[birth year] (78 yo F)Acc No.[id number]:04/14/2024 Progress Note Patient: Zoe FORBES Provider: Garth Mccormick DPM :1945 A ge:78 Y S ex:Female Date:04/14/2024 Address:[address] [place], [place] [id number] Pcp:Kaur Conner MD Subjective: * Chief Complaints: * * Medical History: O steoporosis, Spina bifida, Measles, Mumps, Chicken pox, Joint implants/screws. * Medications: T aking Brimonidine Tartrate 0.2 % Solution INSTILL 1 DROP IN LEFT EYE TWICE DAILY. 12 HOURS APART Ophthalmic * Allergies: S hrimp Flavor. Objective: * Vitals: Assessment: Plan: * Treatment: * Images: * The named appointment provid er may or may not be the originator of this progress note, and it is not deemed complete until electronically signed by the appointment provider. Sign off status: Pending * Provider: Garth Mccormick DPM Date: 0 04/14/2024 Generated for Georges hazel/Aidan/Yanira on: 0 09/29/2024 08:37 AM EDT
--- OUTSIDE RECORDS SUMMARY | 2024-09-29 08:37 | XMS_ITS | Clinical Summary ---
Author Organization [facility] Address [address] [place] [address] Care Team Providers Care Kiss Machine Operator Name Role Phone Angelita Pedro BUILD AUTOMATION ENGINEER Primary Care Provider [phone] Allergies Active Allergy Reactions Criticality Noted Date [...] age to complete this topic Care Teams Kiss Machine Operator Relationship Specialty Start Date End Date Angelita Pedro BUILD AUTOMATION ENGINEER [address] [facility] [place] [place] [address] PCP - General Family Medicine 11/05/16
--- OUTSIDE RECORDS SUMMARY | 2024-09-29 08:37 | XMS_ITS ---
Author Name [facility] Organization Unknown Encounters Encounter Type Encounter Reason Primary Diagnosis Location Date Ambulatory [facility] 10/01/2022
--- OUTSIDE RECORDS SUMMARY | 2024-09-29 08:37 | XMS_ITS | Clinical Summary ---
Author Organization [facility] ity Address [address] [place] [address] Care Team Providers Care Rug Cleaner Hand Name Role Phone Angelita Pedro NP Primary [...] nts (1 - 1-dose 75+ series) 2021 Falls Risk Assessment 01/29/2022 Hepatitis C Screening 01/29/2022 Osteoporosis Screening (Bone Density Screening) 01/29/2022 Social Influencers of Health Screening 01/29/2022 COVID-19 Vaccine (2 - 2023-2 5 season) 2023 06/25/2020 Depression Screening 02/23/2024 Influenza Vaccine (#1) 2024 HIB Vaccines Aged [...] age to complete this topic Care Teams Rug Cleaner Hand Relationship Specialty Start Date End Date Angelita Pedro NP PCP - General Internal Medicine 09/18/21
== END 2024-09-29 08:26 | disposition home or self-care (01) ==
LOC: HO.HAP 08:25
PROVIDERS: Visit Provider Internal Medicine
DX: Z13.89 Encounter for screening for other disorder (principal)

== ENCOUNTER 2024-10-27 08:12 | Outpatient (REF) | payer SELFPAY ==
--- OUTSIDE RECORDS SUMMARY | 2024-01-24 06:00 | XMS_ITS ---
Author Organization [facility] Address [address] [place] [address] Care Team Providers Care Manager Foreign Name Role Phone Kaur Conner MD Primary Care Provider Portillo Nuno Unavailable [phone] Judith Chavez [phone] REASON FOR VISIT seen sooner Encounters Encounter Location Date Provider Diagnosis [address] [address] 01/24/2024 Judith Chavez Plan Of Treatment Next Appt Details Provider Name:Portillo Mccormick , 11/03/2024 09:15:00 AM, [address] [place] [address], [phone], Progress Notes * JALEEL AdinaaDOB:[birth year] (79 yo F)Acc No.[id number]:01/24/2024 Progress Note Patient: Zoe FORBES Provider: Cyndi Chavez DPM :1945 A ge:78 Y S ex:Female Date:01/24/2024 Address:[address] [place], [place] [id number] Pcp:Kaur Conner MD Subjective: * Chief Complaints: [...] Pending * Provider: Cyndi Chavez DPM Date: 03/26/2023 Generated for Georges Kent/Yanira on: 0 10/27/2024 08:30 AM EDT
--- OUTSIDE RECORDS SUMMARY | 2024-04-14 05:00 | XMS_ITS ---
Author Organization [facility] Address [address] [place] [address] Care Team Providers Care Record Center Coordinator Name Role Phone Kaur Conner MD Primary Care Provider Portillo Nuno Unavailable [phone] Allergies Allergen (clinical drug ingredient) Drug/Non Drug [...] Active Encounters Encounter Location Date Provider Diagnosis [address] [address] 04/14/2024 Portillo Mccormick Plan Of Treatment Next Appt Details Provider Name:Portillo Mccormick , 11/03/2024 09:15:00 AM, [address] [place] [address], [phone], Progress Notes * Adina MARMOLEJOaDOB:[birth year] (79 yo F)Acc No.[id number]:04/14/2024 Progress Note Patient: Zoe FORBES Provider: Garth Mccormick DPM :1945 A ge:78 Y S ex:Female Date:04/14/2024 Address:[address] [place], [place] [id number] Pcp:Kaur Conner MD Subjective: * Chief Complaints: [...] 04/14/2024 Generated for Georges hazel/Aidan/Yanira on: 0 10/27/2024 08:30 AM EDT
--- OUTSIDE RECORDS SUMMARY | 2024-10-27 08:30 | XMS_ITS | Patient Health Record ---
Author Organization [facility] Address [address] [facility] [place] [address] Care Team Providers Care Tire Beader Maker Name Role Phone Kaur Conner MD Primary Care Provider Portillo Nuno Unavailable [phone] Judith Chavez Unavailable [phone] Allergies Allergen (clinical drug ingredient) Drug/Non Drug Allergy documented on EMR Reaction Allergy Type Onset Date Status Shrimp Flavor Unknown Drug Allergy Act mine Reason For Referral No Information Medications Medication SIG (Take, Route, Frequency, Duration) Notes Start Date End Date Status Brimonidine Tartrate 0.2 % INSTILL 1 REJI P IN LEFT EYE TWICE DAILY. 12 HOURS APART Ophthalmic; Duration: 90 Days Active Immunizations Vaccine Route Administration Date Status Comme nts Influenza Unknown 07/28/2024 Refused Social History Tobacco Use: Social History Observation [...] Problem Status W/U Status Risk Notes Problem Onychomycosis (531690501) Onychomycosis (B35.1) Active confirmed Vital Signs Blood pressure diastolic 65 mm Hg 07/28/2024 Height 5 ft in 07/28/2024 Blood pressure systolic 128 mm Hg 07/28/2024 Weight 130 lbs 07/28/2024 BMI 25.39 kg/m2 07/28/2024 Procedures Procedure Date Ordered Date Performed Result Body Sit e 81491-KGPJVEM NAIL, 6 OR MORE 01/11/2024 N/A [id number] NAIL, 6 OR MORE 04/21/2024 N/A [id number] NAIL, 6 OR MORE 07/28/2024 N/A Encounters Encounter Location Date Provider Diagnosis [address] [address] 01/11/2024 Portillo Mccormick Onychomycosis B35.1 ; Pain in right toe(s) M79.674 and Pain in left toe(s) M79.[address] [address] 04/21/2024 Portillo Mccormick Onychomycosis B35.1 ; Pain in right toe(s) M79.674 and Pain in left toe(s) M79.[address] [address] 07/28/2024 Portillo Mccormick Onychomycosis B35.1 ; Pain in right toe(s) M79.674 and Pain in left toe(s) M79.[address] [address] 04/14/2024 Portillo Mccormick Assessments Encounter Date Diagnosis (ICD Code) Assessment Notes Treatment Notes Treatment Clinical Notes Section Notes 01/11/2024 Pain in right toe(s) (ICD-10 - M79.674) 01/11/2024 Onychomycosis (ICD-10 - B35.1) 04/21/2024 Pain in right toe(s) (ICD-10 - M79.674) 04/21/2024 Onychomycosis (ICD-10 - B35.1) 07/28/2024 Pain in right toe(s) (ICD-10 - M79.674) 07/28/2024 Onychomycosis (ICD-10 - B35.1) 07/28/2024 Pain in left toe(s) (ICD-10 - M79.675) 04/21/2024 Pain in left toe(s) (ICD-10 - M79.675) 01/11/2024 Pain in left toe(s) (ICD-10 - M79.675) Plan Of Treatment Pending Test Test Name Order Date [id number] NAIL, 6 OR MORE 01/11/2024 25883-[id number] NAIL, 6 OR MORE 04/21/2024 [id number] NAIL, 6 OR MORE 07/28/2024 Next Appt Details Provider Name:Portillo Mccormick , 11/03/2024 09:15:00 AM, [address] [place], [address], Insurance Providers Payer Name Payer Address Payer Phone Subscriber Number Group Number Insured Name Patient Relationship to Insured Coverage Start Date Coverage End Date [employer] ([facility]) [address] [place] [address] [phone] [id number] Zoe Cochran Self - patient is the insured Medical (General) History Medical History History ICD Code Osteoporosis Spina bifida Measles Mumps Chicken pox Joint implants/screws Surgical History Surgery Date(Month/Year) left knee replacement 03/23/2022 right knee replacement 04/23/2017 Gall bladder removal
--- OUTSIDE RECORDS SUMMARY | 2024-10-27 08:30 | XMS_ITS | Clinical Summary ---
Author Organization [facility] ity Address [address] [place] [address] Care Team Providers Care Washcloth Folder Name Role Phone Angelita Pedro NP Primary [...] 01/29/2022 Social Influencers of Health Screening 01/29/2022 Depression Screening 02/23/2024 COVID-19 Vaccine (2 - 2024-2 6 season) 2024 06/25/2020 Influenza Vaccine (#1) 2024 HIB Vaccines [...] age to complete this topic Care Teams Washcloth Folder Relationship Specialty Start Date End Date Angelita Pedro NP PCP - General Internal Medicine 09/18/21
--- OUTSIDE RECORDS SUMMARY | 2024-10-27 08:30 | XMS_ITS | Clinical Summary ---
Author Organization [facility] Address [address] [place] [address] Care Team Providers Care Induction Heat Treater Name Role Phone Angelita Pedro EARTH AUGER OPERATOR Primary Care Provider [phone] Allergies Active Allergy Reactions Criticality Noted Date [...] 75+ series) 2021 COVID-19 Vaccine (2 - 2024-2 6 season) 2024 06/25/2020 Influenza Vaccine (#1) 2024 Hepatitis B Vaccines Aged Out No long er eligible based on patient's age to complete this topic RSV Ped < 20 months Aged Out No longe r eligible based on patient's age to complete this topic Care Teams Induction Heat Treater Relationship Specialty Start Date End Date Angelita Pedro EARTH AUGER OPERATOR [address] [facility] [place] [id number] PCP - General Family Medicine 11/05/16
--- OUTSIDE RECORDS SUMMARY | 2024-10-27 08:30 | XMS_ITS | Clinical Summary ---
Author Organization [facility] Address [address] [facility] [address] [place] [address] Phone Care Team Providers Care Loss Control Consultant Name Role Phone Josh Cooley MD Unavailable [phone] Unknown, Unknown Primary Care Provider Yahir barrett Allergies Active Allergy Reactions Criticality Noted Date Comments Shellfish Containing Products 2016 ?? reaction Medications cyanocobalamin, vitamin B-12, 1000 MCG tablet Take 1 tablet by mouth daily. Active calcium carbonate (OS-MATILDE) 1,500 mg (600 mg elemental) tablet ONE DAILY Orally Act mine amoxicillin (AMOXIL) 500 MG tablet Take 500 mg by mouth daily as needed. 4 tabs 1 hour before dental 8 Active cholecalciferol (VITAMIN D3) 1,000 unit tablet Take 1,000 Units by mouth daily. Active fluticasone propionate (FLONASE) 50 mcg/actuation nasal spray 2 sprays by Nasal route daily. 16 g 1 9 Active Additional Information Patient taking differently:2 spray Nasal Daily,Before flying, Reported on 11/30/2019 LORazepam (ATIVAN) 0.5 MG tabletIndicatio ns:Psychophysio logical insomnia TAKE 1 TABLET(0.5 MG) BY MOUTH DAILY NEEDED 8 tablet 3 Active Active Problems Problem Noted Date Diagnosed Date Osteoarthritis of right knee 05/12/202212/2022 History of total knee arthroplasty, right 2020 Pain in [place], right 08/11/2018 Biceps tendonitis on left 08/11/2018 Osteopenia of multiple sites 05/14/2017 Psychophysiological insomnia 05/14/2017 Immunizations Immunization Administration Dates Next Due COVID-19 (Pre-12/14) Umm Vaccine, rS-Ad26, P F 06/25/2020 Family History Medical History Relation Comments No Known Problems Daughter 2 Diabetes mellitus Mother Hypertension Mother Relation Status Comments Daughter 1 hit by car Daughter 2 Alive Father (Age 80) Emphysema/heav y smoker Mother (Age 90) Social History Tobacco Use Types Packs/Day Years Used Date Smoking Tobacco: Former Cigarettes 0.3 5 1 03/16/1963 - 01/14/1969 Smokeless Tobacco: Never Alcohol Use Standard Drinks/Week Comments Yes 2 (1 standard drink = 0.6 oz pur e alcohol) 2 glasses of wine weekly Child or Family Care Answer Date Record ed Do you have problems with on e of the following making it difficult for you to work, study, or receive health care? No 12/11/2021 Education Answer Date Recorded Are you interested in more education? Not on jackson e 12/21/2023 Are you concerned about learning? Not on file 12/21/2023 No 12/21/2023 No 12/21/2023 Food Answer Date Recorded Within the past 6 months we worried whether our food would run out before we got money to buy more. Never True 12/11/2021 Within the past 6 months the food we bought just didn't last and we didn't have enough money to get more. Never True Residential Stability Answer Date Recor ded What is your housing situation today? I have keshav chavez 12/11/2021 How many times have you move d in the past 12 months? Zero (I did not move) 12/11/2021 06 Are you worried that in t he next 2 months, you may not have your own housing to live in? No 12/11/2021 Paying for Meds Answer Date Recorded Do you have trouble paying for medicines? No 12/11/2021 Paying Utility Bills Answer Date Record ed Do you have trouble paying your heating or elect ricity bill? No 12/11/2021 Transportation Answer Date Recorded Has the lack of transportati on kept you from medical appointments or from getting medications? No 12/11/2021 Unemployment Answer Date Recorded Are you currently unemployed or working on a part-time or temporary basis, and looking for work? No 12/11/2021 Digital Access Answer Date Recorded No 07/20/2022 No 07/20/2022 Reliable internet access at home? Not on file 07/20/2022 Device with a working camera? Not on file Comments No Sex and Gender Information Value Date Recorded Sex Assigned at Not on file Legal Sex Female 10:06 PM EDT Gender Identity Not on file Sexual Orientation Not on file Last Filed Vital Signs Vital Sign Reading Time Taken Comments Blood Pressure 120/70 07/02/2022 9:51 AM EDT Pulse 76 07/02/2022 9:51 AM EDT Temperature 36.6 C (97.9 F) 07/02/2022 9:51 AM EDT Respiratory Rate 16 12/11/2021 8:22 AM EDT Oxygen Saturation 100% 07/02/2022 9:51 AM EDT Inhaled Oxygen Concentration - - Weight 56.7 kg (125 lb) 07/02/2022 9:51 AM EDT Height 150.5 cm (4' 11.25 ) 07/02/2022 9:51 AM E DT Body Mass Index 25.03 07/02/2022 9:51 AM EDT Plan of Treatment Health Maintenance Due Date Last Done Comments Adult Td,Tdap Booster 1945 SMOKING Hx and SMOKELESS TOBACCO SCREENING 10/24/1959 PNEUMOCOCCAL VACCINES (50+ years) (1 of 1 - PCV) 1996 RSV VACCINE (1 - 1-dose 75+ series) 2021 DEPRESSION SCREENING 12/11/2022 12/11/2021 FOLLOW UP BONE DENSITY TESTING 05/02/2023 05/01/2021, 06/23/2018 INFLUENZA VACCINE (#1) 2024 COVID-19 VACCINE (2 - 2024- season) 2024 06/25/2020 ZOSTER VACCINES (1 of 2) 09/11/2025 Pos tponed from 1996 (Patient Declines / Guardian Declines) LIPID PANEL 12/04/2025 12/04/2020, 09/2019, 08/11/2018, Additional history exists HEPATITIS C SCREENING Completed 11/30/2019 OSTEOPOROSIS SCREENING INITIAL (ONE-TIME) Completed 05/01/2021, 06/23/2018 HEPATITIS A VACCINES Aged Out No long er eligible based on patient's age to complete this topic HIB VACCINES Aged Out No longer eligi ble based on patient's age to complete this topic MENINGOCOCCAL VACCINES (ACWY) Aged Out No longer eligible based on patient's age to complete this topic MENINGOCOCCAL VACCINES (B) Aged Out N o longer eligible based on patient's age to complete this topic Medical Devices Not on file Procedures Procedure Name Priority Date/Time Associated Diagnosis Comments BD DXA SCREENING Routine 05/01/2021 LIPID PANEL Routine 12/04/2020 9:40 AM EDT Routine general medical examination at a health care facility HEPATITIS C ANTIBODY, QUALITATIVE Routine 11/30/2019 9:10 AM EDT Routine general medical examination at a health care facility from Last 3 Months or Most Recently Relevant to Health Maintenance Results * DXA Screening (05/01/2021) Anatomical Region Laterality Modality Bone Density Bone Density Angelita Pedro NP IMG BD BONE DENSITY DEXA Edited Result - Final * (ABNORMAL) Lipid panel (12/04/2020 9:40 AM EDT) HDL 89 mg/dL [facility] Comment: Interpretation <40 mg/dL: Low HDL cholesterol (major risk factor for CHD) Greater than or equal to 60 mg/dL: High HDL cholesterol ( negative risk factor for CHD) HDL - cholesterol is affected by a number of factors, e.g. smoking, excerise, hormones, sex and age. CHOLESTEROL 221 0 - 240 mg/dL [facility] TRIGLYCERIDES 93 30 - 160 mg/dL [facility] LDL 113 50 - 129 mg/dL [facility] Comment: LDL levels in terms of risk for coronary heart disease: <100 mg/dL: Optimal 100-129 mg/dL: Near or above optimal 130-159 mg/dL: Borderline high 160-189 mg/dL: High >190 mg/dL: Very High CARDIAC RISK RATIO 2.5(L) 3.3 - 4.4 [facility] Blood 12/04/2020 9:40 AM EDT 12/04/2020 9:45 AM EDT us Angelita Pedro NP LAB BLOOD ORDERABLES Final Resu lt Performing Organization Address City/[facility]/ZIP Co de Phone Number [address] [address] * Hepatitis C antibody, qualitative (11/30/2019 9:10 AM EDT) HCV NON-REACTIV E NON-REACTI VE [facility] Blood 11/30/2019 9:10 AM EDT 11/30/2019 9:17 AM EDT us Angelita Pedro NP LAB BLOOD ORDERABLES Final Resu lt Performing Organization Address [facility] [[email or web address]] Co de Phone Number [address] [address] from Last 3 Months or Most Recently Relevant to Health Maintenance Insurance [employer] TOTAL CHOICE INDEMNITY [employer] INDE[employer]ITY [employer] TOTAL CHOICE INDEMNITY [employer] IN[employer]ITY [employer]OTAL CHOICE INDEMNITY [employer] TOTAL CHOICE INDEMNITY [employer] IN[employer]ITY [employer] TOTAL CHOICE INDEMNITY [employer] TOTAL CHOICE INDEMNITY Care Teams Loss Control Consultant Relationship Specialty Start Date End Date Unknown, Unknown, PCP - General 04/27/23 Josh Cooley MD [address] [place] [address] [address] [place] [address] Orthopedic Surgery 11/30/19 Additional Source Comments The information contained in this document represents components of the legal health record. It is not the complete legal health record.[facility]
--- NOTE | 2024-10-27 09:51 | MHC.AU.HA3 ---
Hearing Instrument Follow-Up- Binaural Date of Visit: 10/27/24 Right Ear: Geronimo, Model, Color, Serial Number: Oticon Intent 3 silver [id number] Clothes Shaker Repair Warranty: 08/26/2027 Clothes Shaker Loss and Damage Warranty: 08/26/2027 [facility] Service Plan: opt out Battery Size: Rechargeable Mechanical Developer Prover/Slim Tube: 2 85 Earmold/Dome/CShell/SlimTip: [id number] Warranty 01/26/2025 Type of Wax Guard: Prowax Dispensed By: [facility] [place] Date of Fittin09/01/24 Left Ear: Geronimo, Model, Color, Serial Number: Oticon Intent 3 silver [id number] Clothes Shaker Repair Warranty: 08/26/2027 Clothes Shaker Loss and Damage Warranty: 08/26/2027 [facility] [place] Service Plan: opt out Battery Size: Rechargeable Mechanical Developer Prover/Slim Tube: 2/85 Earmold/Dome/CShell/SlimTip: [id number] Warranty 01/26/2025 Type of Wax Guard: Prowax Dispensed By: [facility] [place] Date of Fittin09/01/24 Follow-Up Summary: Dispensed acrylic semi skeleton slim tips. Zoe reports they feel very secure in the ears. Practiced insertion and removal repeatedly until Zoe was able to demonstrate correct insertion with ease. Zoe reported she has not worn the hearing aids at all since last visit on 09/29 due to difficulty with the domes. She reported everything sounded loud with the hearing aids in today. Decreased to adaptation 1 with gradual increase. Counseled on adjustment to amplification. Encouraged consistent daily wear. Advised of remake warranty on molds. Provided Prowax and demonstrated how to change wax guards on slim tips. Scheduled additional follow up to monitor progress with molds, don't charge. Recommendations: Recommendations: An additional follow-up was scheduled to monitor progress. Diagnosis Code(s): Primary Diagnosis: H90.3 Bilateral Sensorineural Hearing Loss Signature: Provider: Jeffy Perrin, CCC-A
== END 2024-10-27 08:13 | disposition home or self-care (01) ==
LOC: HO.HAP 08:12
PROVIDERS: Visit Provider Internal Medicine
DX: Z46.1 Encounter for fitting and adjustment of hearing aid (principal); H90.3 Sensorineural hearing loss, bilateral
CPT/HCPCS: V5264

== ENCOUNTER 2024-12-21 08:18 | Outpatient (REF) | payer SELFPAY ==
--- OUTSIDE RECORDS SUMMARY | 2024-01-24 06:00 | XMS_ITS ---
Author Organization [facility] Address [address] [place] [address] Care Team Providers Care Square Cutter Name Role Phone Kaur Conner MD Primary Care Provider Portillo Nuno Unavailable [phone] Judith Chavez [phone] REASON FOR VISIT seen sooner Encounters Encounter Location Date Provider Diagnosis [address] [address] 01/24/2024 Judith Chavez Plan Of Treatment Next Appt Details Provider Name:Portillo Mccormick , 03/09/2025 08:45:00 AM, [address] [place] [address], [phone], Progress Notes * JALEEL AdinaaDOB:[birth year] (79 yo F)Acc No.[id number]:01/24/2024 Progress Note Patient: Zoe FORBES Provider: Cyndi Chavez DPM :1945 A ge:78 Y S ex:Female Date:01/24/2024 Address:[address] [place], [place] [id number] Pcp:Kaur Conner MD Subjective: * Chief Complaints: * 1 . Seen sooner. * Medical History: Objective: * Vitals: Assessment: Plan: * Treatment: * Images: * The named appointment provid er may or may not be the originator of this progress note, and it is not deemed complete until electronically signed by the appointment provider. Sign off status: Pending * Provider: Cyndi Chavez DPM Date: 1 03/26/2023 Generated for Georges Villanueva on: 08:53 AM EDT
--- OUTSIDE RECORDS SUMMARY | 2024-04-14 05:00 | XMS_ITS ---
Author Organization [facility] Address [address] [place] [address] Care Team Providers Care Textile Clothing And Footwear Mechanic Name Role Phone Kaur Conner MD Primary Care Provider Portillo Nuno Unavailable [phone] Allergies Allergen (clinical drug ingredient) Drug/Non Drug [...] Active Encounters Encounter Location Date Provider Diagnosis [address] [address] 04/14/2024 Portillo Mccormick Plan Of Treatment Next Appt Details Provider Name:Portillo Mccormick , 03/09/2025 08:45:00 AM, [address] [place] [address], [phone], Progress Notes * Adina MARMOLEJOaDOB:[birth year] (79 yo F)Acc No.[id number]:04/14/2024 Progress Note Patient: Zoe FORBES Provider: Garth Mccormick DPM :1945 A ge:78 Y S ex:Female Date:04/14/2024 Address:[address] [place], [place] [id number] Pcp:Kaur Conner MD Subjective: * Chief Complaints: [...] 0 04/14/2024 Generated for Georges hazel/Aidan/Yanira on: 08:53 AM EDT
--- OUTSIDE RECORDS SUMMARY | 2024-12-21 08:53 | XMS_ITS | Patient Health Record ---
Author Organization [facility] Address [address] [place] [address] Care Team Providers Care Acid Bath Mixer Name Role Phone Kaur Conner MD Primary Care Provider Portillo Nuno Unavailable [phone] Judith Chavez Unavailable [phone] Allergies Allergen (clinical drug ingredient) Drug/Non Drug [...] Status W/U Status Risk Notes Problem Onychomycosis (815430061) Onychomycosis (B35.1) Active confirmed Vital Signs Blood pressure diastolic 66 mm Hg 11/03/2024 Height 5 ft in 11/03/2024 Blood pressure systolic 127 mm Hg 11/03/2024 Weight 140 lbs 11/03/2024 BMI 27.34 kg/m2 11/03/2024 Procedures Procedure Date Ordered Date Performed Result Body Sit e 57314-RVCNJCV NAIL, 6 OR MORE 01/11/2024 N/A [id number] NAIL, 6 OR MORE 04/21/2024 N/A [id number] NAIL, 6 OR MORE 07/28/2024 N/A 65651-[id number] NAIL, 6 OR MORE 11/03/2024 N/A Encounters Encounter Location Date Provider Diagnosis [address] [address] 01/11/2024 Portillo Anny Onychomycosis B35.1 ; Pain in right toe(s) M79.674 and Pain in left toe(s) M79.[address] [address] 04/21/2024 Portillo Anny Onychomycosis B35.1 ; Pain in right toe(s) M79.674 and Pain in left toe(s) M79.[address] [address] 07/28/2024 Portillo Anny Onychomycosis B35.1 ; Pain in right toe(s) M79.674 and Pain in left toe(s) M79.[address] [address] 11/03/2024 Portillo Anny Onychomycosis B35.1 ; Pain in right toe(s) M79.674 and Pain in left toe(s) M79.[address] [address] 04/14/2024 Portillo Anny Assessments Encounter Date Diagnosis (ICD Code) Assessment Notes Treatment Notes Treatment Clinical Notes Section Notes 01/11/2024 Pain in right toe(s) (ICD-10 - M79.674) 01/11/2024 Onychomycosis (ICD-10 - B35.1) 04/21/2024 Pain in right toe(s) (ICD-10 - M79.674) 04/21/2024 Onychomycosis (ICD-10 - B35.1) 07/28/2024 Pain in right toe(s) (ICD-10 - M79.674) 07/28/2024 Onychomycosis (ICD-10 - B35.1) 11/03/2024 Pain in right toe(s) (ICD-10 - M79.674) 11/03/2024 Onychomycosis (ICD-10 - B35.1) 11/03/2024 Pain in left toe(s) (ICD-10 - M79.675) 07/28/2024 Pain in left toe(s) (ICD-10 - M79.675) 04/21/2024 Pain in left toe(s) (ICD-10 - M79.675) 01/11/2024 Pain in left toe(s) (ICD-10 - M79.675) Plan Of Treatment Pending Test Test Name Order Date [id number] NAIL, 6 OR MORE 01/11/2024 [id number] NAIL, 6 OR MORE 04/21/2024 [id number] NAIL, 6 OR MORE 07/28/2024 [id number] NAIL, 6 OR MORE 11/03/2024 Next Appt Details Provider Name:Portillo Mccormick , 03/09/2025 08:45:00 AM, [address] [facility], [place], [address], Insurance Providers Payer Name Payer Address Payer Phone Subscriber Number Group Number Insured Name Patient Relationship to Insured Coverage Start Date Coverage End Date [facility]) [address] [place] [address] [id number] Zoe Cochran Self - patient is the insured Medical (General) History Medical History History ICD Code Osteoporosis Spina bifida Measles Mumps Chicken pox Joint implants/screws Surgical History Surgery Date(Month/Year) left knee replacement 03/23/2022 right knee replacement 04/23/2017 Gall bladder removal
--- OUTSIDE RECORDS SUMMARY | 2024-12-21 08:53 | XMS_ITS | Clinical Summary ---
Author Organization [facility] Address [address] [facility] [address] [place] [address] Phone Care Team Providers Care Heel Compressor Name Role Phone Josh Cooley MD Unavailable [phone] Unknown, Unknown Primary Care Provider Yahir barrett [...] (12/04/2020 9:40 AM EDT) HDL 89 mg/dL [facility] Comment: Interpretation <40 mg/dL: Low HDL cholesterol (major risk factor for CHD) Greater than or equal to 60 mg/dL: High HDL cholesterol ( negative risk factor for CHD) HDL - cholesterol is affected by a number of factors, e.g. smoking, excerise, hormones, sex and age. CHOLESTEROL 221 0 - 240 mg/dL [facility] TRIGLYCERIDES 93 30 - 160 mg/dL [facility] LDL 113 50 - 129 mg/dL [facility] Comment: LDL levels in terms of risk for coronary heart disease: <100 mg/dL: Optimal 100-129 mg/dL: Near or above optimal 130-159 mg/dL: Borderline high 160-189 mg/dL: High >190 mg/dL: Very High CARDIAC RISK RATIO 2.5(L) 3.3 - 4.4 [facility] Blood 12/04/2020 9:40 AM EDT 12/04/2020 9:45 AM EDT us Angelita Pedro NP LAB BLOOD ORDERABLES Final Resu lt Performing Organization Address City/[facility]/ZIP Co de Phone Number [address] [address] * Hepatitis C antibody, qualitative (11/30/2019 9:10 AM EDT) HCV NON-REACTIV E NON-REACTI VE [facility] Blood 11/30/2019 9:10 AM EDT 11/30/2019 9:17 AM EDT us Angelita Pedro NP LAB BLOOD ORDERABLES Final Resu lt Performing Organization Address [facility] Co de Phone Number [address] [address] from Last 3 Months or Most Recently Relevant to Health Maintenance Insurance [employer] TOTAL CHOICE INDEMNITY [employer] TOTAL CHOICE INDEMNITY [employer] TOTAL CHOICE INDEMNITY [employer] TOTAL CHOICE INDEMNITY [employer] TOTAL CHOICE INDEMNITY [employer] TOTAL CHOICE INDEMN[employer] TOTAL CHOICE INDEMNITY [employer] TOTAL CHOICE INDEMNITY [facility] TOTAL CHOICE INDEMNITY Care Teams Heel Compressor Relationship Specialty Start Date End Date Unknown, Unknown, PCP - General 04/27/23 Josh Cooley MD [address] [place] [address] [address] [place] [address] Orthopedic Surgery 11/30/19 Additional Source Comments The information contained in this document represents components of the legal health record. It is not the complete legal health record.[facility]
--- OUTSIDE RECORDS SUMMARY | 2024-12-21 08:53 | XMS_ITS | Clinical Summary ---
Author Organization [facility] Address [address] [place] [address] Care Team Providers Care Allergy And Immunology Chief Name Role Phone Angelita Pedro MOTOR EQUIPMENT CAPTAIN Primary Care Provider [phone] Allergies Active Allergy Reactions Criticality Noted Date [...] age to complete this topic Care Teams Allergy And Immunology Chief Relationship Specialty Start Date End Date Angelita Pedro MOTOR EQUIPMENT CAPTAIN [address] [facility] [place] [address] PCP - General Family Medicine 11/05/16
== END 2024-12-21 08:19 | disposition home or self-care (01) ==
LOC: HO.HAP 08:18
PROVIDERS: Visit Provider Internal Medicine
DX: Z13.89 Encounter for screening for other disorder (principal)